=== PATIENT | male | born 1955 | race Hispanic/Latino ===

== ENCOUNTER 2020-01-02 10:42 | Emergency (ER) | payer OTHER ==
[2020-01-02 11:08] LABS: Absolute Lymphocytes (CBC) 1.4 K/uL (0.7-4.9); Basophils % 1.2 % (0-1.3); Hematocrit 41.7 % (39.6-49.0); Lymphocytes % 17.2 % (15.3-44.8); MPV 8.2 fL (7.6-11.3); RBC Red Blood Cell Count 4.95 M/uL (4.33-5.43)
--- NOTE | 2020-01-02 11:13 | RAD REPORT ---
EXAM DESCRIPTION: CT - Head Brain Wo Cont - 01/02/2020 11:02 am CLINICAL HISTORY: Dizziness;Headache Headache, drowsiness COMPARISON: No comparisons TECHNIQUE: All CT scans are performed using dose optimization technique as appropriate and may inclu de automated exposure control or mA/KV adjustment according to patient size. FINDINGS: No intracranial hemorrhage, hydrocephalus or extra-axial fluid collection.Mild brain atrop hy is present.No areas of brain edema or evidence of midline shift. Left mastoid air cell appears opacified. The paranasal sinuses and mastoids are otherwise clear. The calvarium is intact. IMPRESSION: No acute intracranial abnormality. Opacified left mastoid air cell.
--- NOTE | 2020-01-02 11:17 | RAD REPORT ---
EXAM DESCRIPTION: RAD - Chest Single View - 01/02/2020 11:01 am CLINICAL HISTORY: dizziness Chest pain. COMPARISON: Chest Single View dated 08/13/2017 FINDINGS: Portable technique limits examination quality. The lungs are grossly clear. The heart is normal in size. No displaced fractures.Multi lead pacer dev ice is present. IMPRESSION: No acute intrathoracic process suspected.
[2020-01-02 11:20] LABS: Protime INR 0.92
[2020-01-02 12:28] LABS: ALT/SGPT 16 U/L (12-78); AST/SGOT 10 U/L (15-37); Albumin 3.1 g/dL (3.4-5.0); Alkaline Phosphatase 88 U/L (45-117); BUN Blood Urea Nitrogen 40 mg/dL (7-18); Bicarbonate 25 mmol/L (21-32); Bilirubin Direct < 0.1 mg/dL (0-0.2); Bilirubin Total 0.2 mg/dL (0.2-1.0); Glucose Level 127 mg/dL (74-106); Magnesium 2.1 mg/dL (1.8-2.4); NT PRO-BNP 1148 pg/mL (<125); Potassium 4.2 mmol/L (3.5-5.1); Protein, Total 7.5 g/dL (6.4-8.2); Sodium Level 141 mmol/L (136-145); Troponin (Emerg Dept Use Only) < 0.02 ng/mL (0.0-0.045)
--- OUTSIDE RECORDS SUMMARY | 2020-01-02 12:32 | XMS REPORT | Summary of Care ---
:1955 Author Organization [facility] - [facility] Address [address] [place] [id number] Care Team Providers Name Role Phone Lupillo Herrera MD Primary Care Provider Matilda Ball RNoperating systems programmer Matilda Garcia Community Health Worker Reason for Visit Reason Comments Follow-up left a message Encounter Details Date Type Department Care Team Description 10/18/2019 Patient Outreach [facility] Kate Garcia Follow-up (left a [address] message ) [place], [place] [address] Allergies No Known Allergiesdocumented as of this encounter (statuses as of 10/18/2019) Medications Medication Sig Dispensed Refills Start Date End Date Status aspirin 81 mg Take 1 tablet by 60 tablet 5 02/28/2018 Active chewable tablet mouth daily. 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 hopi coronary artery of hopi heart without angina pectoris FUROSEMIDE 40 mg TAKE 1 TABLET BY 60 tablet 2 06/27/2019 Active tabletIndications: MOUTH IN THE Coronary artery MORNING AND IN disease involving THE EVENING hopi coronary artery of hopi heart without angina pectoris insulin detemir U-100 inject 55 Units 20 mL 5 07/21/2019 Active (LEVEMIR U-100 under the skin INSULIN) 100 unit/mL at bedtime. injectionIndications: Uncontrolled type 2 diabetes mellitus with stage 4 chronic kidney disease, with long-term current use of insulin insulin regular human inject 15 Units 20 mL 5 07/21/2019 Active 100 unit/mL under the skin 3 injectionIndications: (three) times Uncontrolled type 2 daily before diabetes mellitus meals. with stage 4 chronic kidney disease, with long-term current use of insulin hydrALAZINE 100 mg Take 1 tablet by 270 tablet 2 08/10/2019 Active tabletIndications: mouth 3 (three) Coronary artery times daily for disease involving 90 days. hopi coronary artery of hopi heart without angina pectoris isosorbide Take 60 mg by 0 Activ e mononitrate 60 mg 24 mouth daily. hr tablet ATORVASTATIN 40 mg TAKE 2 TABLETS 60 tablet 0 09/14/2019 Active tabletIndications: BY MOUTH AT GUTIERREZ (dyspnea on BEDTIME exertion) clopidogreL (PLAVIX) Take 1 tablet by 30 tablet 2 09/22/2019 0 10/22/2019 Active 75 mg mouth daily for tabletIndications: 30 days. Coronary artery disease involving hopi coronary artery of hopi heart without angina pectoris documented as of this encounter (statuses as of 10/18/2019) Active Problems Problem Noted Date Morbid obesity with body mass index of 40.0-49.9 07/05 Cardiac pacemaker in situ 07/05/2019 Screening for colorectal cancer 06/12/2019 Overview: Added automatically from request for monik nelson [id number] Vitamin D deficiency 03/01/2018 Pseudophakia of left eye 02/25/2018 Senile incipient cataract of right eye 02/25/2018 Stable proliferative diabetic retinopathy of both eyes associated with 02/25/2018 type 2 diabetes mellitus Retinal detachment, tractional, right eye 02/25/2018 Immunization counseling 01/25/2018 ESR raised 01/25/2018 Essential hypertension 01/11/2018 Chronic systolic congestive heart failure 01/11/2018 Hyperkalemia 01/11/2018 Anemia, unspecified type 01/11/2018 Chronic cholecystitis with calculus 01/10/2018 Positive NATE (antinuclear antibody) 1:80, Low C4 12/31 Elevated alkaline phosphatase level 11/29/2017 CHF (congestive heart failure) 11/22/2017 CAD (coronary artery disease) 11/22/2017 Callus of foot 11/22/2017 Diabetic peripheral neuropathy 11/22/2017 Obesity (BMI 30-39.9) 11/07/2017 SOB (shortness of breath) 11/07/2017 Tachycardia 11/07/2017 Insulin dependent type 2 diabetes mellitus, uncontroll ed 10/17/2015 Stage 4 chronic kidney disease Cataract documented as of this encounter (statuses as of 10/18/2019) Resolved Problems Problem Noted Date Resolved Date Hypoxia 11/07/2017 11/22/2017 SBO (small bowel obstruction) 11/08/2015 11/22/2017 documented as of this encounter (statuses as of 10/18/2019) Immunizations Name Administration Dates Next Due Pneumococcal Polysaccharide, PPSV23 (PNEUMOVAX) 10/18/2015 documented as of this encounter Social History Tobacco Use Types Packs/Day Years Used Date Never Smoker Smokeless Tobacco: Never Used Alcohol Use Drinks/Week oz/Week Comments No 0 Standard drinks or equivalent 0.0 Education Answer Date Recorded What is the highest level of school you have completed or 12 th grade 07/05/2019 the highest degree you have received? Financial Resource Strain Answer Date Recorded How hard is it for you to pay for the very basics like Not h juanita at all 07/05/2019 food, housing, medical care, and heating? Food Insecurity Answer Date Recorded Within the past 12 months, you worried that your food would Never true 07/05/2019 run out before you got money to buy more. Within the past 12 months, the food you bought just didn't N ever true 07/05/2019 last and you didn't have money to get more. Transportation Needs Answer Date Recorded In the past 12 months, has lack of transportation kept you f rom No 07/05/2019 medical appointments or from getting medications? In the past 12 months, has lack of transportation kept you f rom No 07/05/2019 meetings, work, or getting things needed for daily living? Sex Assigned at Date Recorded Not on file Job Start Date Occupation Industry Not on file Not on file Not on file Travel History Travel Start Travel End No recent travel history available. documented as of this encounter Last Filed Vital Signs Not on filedocumented in this encounter Progress Notes Kate Garcia - 10/18/2019 8:57 AM NIA Garcia called Mr. Rosado to follow up with him but no answer, did leave a message to call me back. documented in this encounter Plan of Treatment Date Type Specialty Care Team Description 11/03/2019 Office Visit Otolaryngology Tolu Cruz MD [address] [place] [address] [phone] 11/16/2019 Laboratory Only Cardiology 1, [facility] Cardio Fac Room Pc, [facility] Echo Room 1 - 2019 Office Visit Endocrinology Diabetes & Lonny Mclean, Metabolism [address] [facility] [address] [place], [place] [address] 2019 Nurse Visit Cardiology Visit, [facility] Nurse 03/08/2020 Office Visit Ophthalmology Hetaher Burroughs MD [address] [place], [place] [address] 04/18/2020 Office Visit Cardiology Juana Lyons MD [address] [place] [address] Health Maintenance Due Date Last Done Comments HgA1C 11/08/2019 05/09/2019, 02/11/2018, 11/06/2017, Additional history exists DTaP,Tdap,and Td Vaccines 05/08/2020 Postpo marbella from (1 - Tdap) 1965 (Refu sed) INFLUENZA VACCINE (#1) 2020 Postponed from 04/02/2019 (Refu sed) Zoster Recombinant Vaccine 05/08/2020 Postp oned from (SHINGRIX) (1 of 2) 2004 ( Insurance / Financial) LDL-C 05/09/2020 05/09/2019, 11/07/2017 URINE MICROALBUMIN 05/09/2020 05/09/2019 EYE EXAM 06/09/2020 06/09/2019, 02/25/2018 CREATININE (SERUM) 07/06/2020 07/06/2019, 07/05/2019, 05/09/2019, Additional history exists FOOT EXAM 07/21/2020 07/21/2019, 07/21/2019, 05/08/2019, Additional history exists COLONOSCOPY 07/18/2022 07/18/2019 PNEUMOCOCCAL 0-64 YEARS Completed 10/18/2015 COMBINED SERIES HEPATITIS C (HCV) SCREEN Completed 12/22/2017 documented as of this encounter Goals Goal Patient Goal Associated Recent Patient-Stated? Author Type Problems Progress Record your Blood Pressure No Jass Ball blood pressure E, RN once a day Eat more fruits Diet No Jass Ball and vegetables E, RN Increase Exercise No Jeny Ball physical E, RN activity Record your Result No Jeny Ball blood sugar as Component E, RN directed documented as of this encounter Implants Implanted Type Area Veneer Sander Device Shelf Model / Identifier Expiration Serial / Date Lot Defibrillator DEFIBRILLATOR documented as of this encounter Results Not on filedocumented in this encounter Insurance Payer Benefit Plan / Subscriber ID Effective Dates Phone Addre ss Type Group [facility] [id number] 2019-20 [facility] documented as of this encounter
--- OUTSIDE RECORDS SUMMARY | 2020-01-02 12:32 | XMS REPORT | Summary of Care ---
:1955 Author Organization [facility] Address [address] [place] [address] Care Team Providers Name Role Phone Lupillo Herrera MD Primary Care Provider Matilda Ball RNkitman Matilda Garcia Community [facility] Worker Reason for Visit Reason Comments Follow-up Coronary artery disease invo lving miccosukee coronary artery of [place] heart without angina pectoris (Routine) Status Reason Specialty Diagnoses / Referred By Referred To Procedures Contact Contact Authorized Cardiology Procedures Lupillo Herrera CONSULT/REFERRAL MD [facility] [address] [place] [address] [place] [address] Encounter Details Date Type Department Care Team Description 10/17/2019 Office Visit [facility] Juana Lyons Coronary gigi ry disease involving [place]ukee coronary artery of [place]e heart without angina pectoris (Primary Dx); Cardiology- Xena Messina MD Essential hypertension; [facility] [address] Stage 4 chronic kidney disease; [address], [address] 106 Chronic combined systolic and diastolic CHF, NYHA class 3; [place], [place] LBBB (left bund le branch block); [id number] Ischemic cardiomyopathy; [phone] S/P biventricular cardiac pacemaker proc edure Allergies No Known Allergiesdocumented as of this encounter (statuses as of 10/17/2019) Medications Medication Sig Dispensed Refills Start Date End Date Status aspirin 81 mg Take 1 tablet by 60 tablet 5 02/28/2018 Active chewable tablet mouth daily. 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 miccosukee coronary artery of [place]e heart without angina pectoris FUROSEMIDE 40 mg TAKE 1 TABLET BY 60 tablet 2 06/27/2019 Active tabletIndications: MOUTH IN THE Coronary artery MORNING AND IN disease involving THE EVENING [place]ukee coronary artery of mic[place]e heart without angina pectoris insulin detemir U-100 [...] times daily for disease involving 90 days. miccosukee coronary artery of miccosukee heart without angina pectoris isosorbide Take 60 [...] tabletIndications: 30 days. Coronary artery disease involving miccosukee coronary artery of miccosukee heart without angina pectoris documented as of this encounter (statuses as of 10/17/2019) Active Problems Problem Noted Date Morbid obesity with body mass index of 40.0-49.9 07/05 Cardiac pacemaker in situ 07/05/2019 Screening for colorectal cancer 06/12/2019 Overview: Added automatically from request for monik damon [id number] Vitamin D deficiency 03/01/2018 Pseudophakia of left [...] as of this encounter (statuses as of 10/17/2019) Resolved Problems Problem Noted Date Resolved Date Hypoxia 11/07/2017 11/22/2017 SBO (small bowel obstruction) 11/08/2015 11/22/2017 documented as of this encounter (statuses as of 10/17/2019) Immunizations Name Administration Dates Next Due Pneumococcal [...] of this encounter Last Filed Vital Signs Vital Sign Reading Time Taken Comments Blood Pressure 104/55 10/17/2019 1:00 PM CDT Pulse 67 10/17/2019 1:00 PM CDT Temperature - - Respiratory Rate 19 10/17/2019 1:00 PM CDT Oxygen Saturation 92% 10/17/2019 1:00 PM CDT Inhaled Oxygen Concentration - - Weight 114.7 kg (252 lb 14.4 oz) 10/17/2019 1:00 PM CDT Height 167.6 cm (5' 6") 10/17/2019 1:00 PM CDT Body Mass Index 40.82 10/17/2019 1:00 PM CDT documented in this encounter Progress Notes Juana Lyons MD - 10/17/2019 1:00 PM CDT [facility] Cardiology Consult Note Patient: Bernard Rosado Date of : 1955 Primary Care Physician: Lupillo Herrera CHIEF COMPLAINT: Chief Complaint Patient presents with Follow-up Coronary artery disease involving miccosukee coronary artery of miccosukee heart without angina pectoris History of Present Illness: Mr. Rosado is a 63-year-old male patient who presented to the office for follow- up for underlying chronic systolic heart failure/CAD. History from patient himself. Since the last office visit, feeling well on the whole. No new cardiac complaints noted. Feels having more energy. GUTIERREZ NYHA Class II stable. No exertional chest pain noted. He is off ACEI/ARB since the CKD status byhis shift lab technician. No chest pain at rest. No PND or orthopnea. No pedal edema. No exertional palpitations or palpitations at rest. No syncopal attacks. Hospital history:- Patient was noted to have acute myocardial infarctions subsequent to which patient was taken to [facility] for further evaluation and management. The coronary angiogram did show presence of significant 2 vessel disease with intervention in the left anterior descending artery and also RCA. He was also no tiffanie to have acute on chronic acute heart failure with LV systolic function of 20-25% subsequent to which patient was optimized with medications along with intervention and then discharged home. Previous Cardiac Studies: IMAGING - I personally reviewed, pertinent results as below: [facility] (11/11/2017): Significant improvement in the anterior wall thallium uptake corresponding to the LAD territory and demonstrating viability in that region. Cardiac: Echo 12/2017 The echocardiogram that was recently done shows still reduced systolic function at 2025% with regional wall motion changes with no significant changes compared to the previous echocardiogram done. TTE (11/08/2017): Left ventricular systolic function is severely reduced. Ejection Fraction = 25- 30%. Diastolic function is pseudonormal. Anteroseptal, inferoseptal , apical akinesis, and severe anterior wall hypokinesis. Left ventricular filling presure is elevated. Echo 09/2018 Interpretation Summary A two-dimensional transthoracic echocardiogram with M-mode and Doppler was performed. The study was technically limited. Ejection Fraction = 25-30%. Diastolic function is restrictive. Left ventricular filling presure is elevated. There are regional wall motion abnormalities as specified. Estimated RA pressure is 0-5 mmHg. Right ventricular systolic pressure is elevated at 55-60 mmHg. [facility] (11/09/2017): LEFT CORONARY ARTERY: Left Main Artery: Large vessel, Luminal irregularities LAD: Diffusely diseased vessel, with foal 40% disease at D2 takeoff, And distal tandem 70% stenosis In A small diffusely vessel Diagonal 2: ostial focal 50%, mid 50-70% disease Circumflex: Mediums sized Vessel, mild diffuse disease RIGHT CORONARY ARTERY: DOMINANCE: Right Dominant Name: BERNARD ROSADO Procedure date: 11/09/2017 RCA: Medium sized vessel, proximal Luminal irregularities, distal 30% disease Rt. PDA: multifocal 50% disease ( small vessel) RPL: small diffuse disease PCI (11/15/2017): PCI of the mLAD with 3x32 Synergy AMY IVUS of the mLAD stent showed well apposed and expanded stent MLA 6.2 mm sq FFR of the RCA significant (baseline 0.91 and peak wityh 90 mcg IC adenosine 0.85, baseline 0.91 andpeak with 140 mcg/kg/min infusion 0.72) PCI of the pRCA and dRCA with 3x32 and 2.5x24 Synergy AMY IVUS of the RCA stents showed well apposed and expanded stents pRCA stent MLA 6.9 mm sq, dRCA stent MLA 4.7 mm sq Echo 01/2018 Interpretation Summary Compared to prior study, there is no significant change. A complete two- dimensional transthoracic echocardiogram was performed (2D, M-mode, Doppler and color flow Doppler). Mildly dilated LV size with normal thickness. Severely reduced LV systolic function. Normal RV size and function. RVSP elevated 35-40 mmHg Echo 09/2018 Interpretation Summary A two-dimensional transthoracic echocardiogram with M-mode and Doppler was performed. The study was technically limited. Ejection Fraction = 25-30%. Diastolic function is restrictive. Left ventricular filling presure is elevated. There are regional wall motion abnormalities as specified. Estimated RA pressure is 0-5 mmHg. Right ventricular systolic pressure is elevated at 55-60 mmHg. 07/05/2019 Impression: Successful CRTD insertion PAST MEDICAL HISTORY Past Medical History: Diagnosis Date CAD (coronary artery disease) Cataract CHF (congestive heart failure) Chronic cholecystitis with calculus 01/10/2018 CKD (chronic kidney disease) Diabetic foot ulcer associated with type 2 diabetes mellitus right fifth toe HTN (hypertension) IDDM (insulin dependent diabetes mellitus) diagnosed in his 20's, started on insulin from beginning Osteomyelitis of toe of right foot Positive NATE (antinuclear antibody) 01/09/2018 SBO (small bowel obstruction) 11/08/2015 Vitamin D deficiency 03/01/2018 Past Surgical History: Procedure Laterality Date COLONOSCOPY N/A 07/18/2019 Surgeon: Cecelia Ramon MD; [place] [facility] [place] WITH INTRAOCULAR LENS IMPLANT Left LEFT HEART CATH OD REPAIR RETINAL CRYOTHERAPY, RIGHT EYE Family History Problem Relation Age of Onset Diabetes Mother Diabetes Father Diabetes Sister Cancer Sister "female" cancer Diabetes Brother Diabetes Brother SOCIAL HISTORY Social History Socioeconomic History Marital status: Single Spouse name: Not on file Number of children: 0 Years of education: Not on file Highest education level: 12th grade Occupational History Occupation: RETIRED Social Needs Financial resource strain: Not hard at all Food insecurity: Worry: Never true Inability: Never true Transportation needs: Medical: No Non-medical: No Tobacco Use Smoking status: Never Smoker Smokeless tobacco: Never Used Substance and Sexual Activity Alcohol use: No Alcohol/week: 0.0 standard drinks Drug use: No Sexual activity: Yes Partners: Female Lifestyle Physical activity: Days per week: Not on file Minutes per session: Not on file Stress: Not on file Relationships Social connections: Talks on phone: Not on file Gets together: Not on file Attends restorationism service: Not on file Active member of club or organization: Not on file Attends meetings of clubs or organizations: Not on file Relationship status: Not on file Intimate partner violence: Fear of current or ex partner: Not on file Emotionally abused: Not on file Physically abused: Not on file Forced sexual activity: Not on file Other Topics Concern Not on file Social History Narrative As of 11/07/2017: 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 Denies smoking, drinking, or using illicit drugs. Single, no children Not working currently ALLERGIES No Known Allergies MEDICATIONS Patient's Medications START taking these medications No medications on file CONTINUE taking these medications which have NOT CHANGED ASPIRIN 81 MG CHEWABLE TABLET Take 1 tablet by mouth daily. ATORVASTATIN 40 MG TABLET TAKE 2 TABLETS BY MOUTH AT BEDTIME CARVEDILOL 25 MG TABLET Take 1 tablet by mouth 2 (two) times daily with meals. CLOPIDOGREL (PLAVIX) 75 MG TABLET Take 1 tablet by mouth daily for 30 days. FUROSEMIDE 40 MG TABLET TAKE 1 TABLET BY MOUTH IN THE MORNING AND IN THE EVENING HYDRALAZINE 100 MG TABLET Take 1 tablet by mouth 3 (three) times daily for 90 days. INSULIN DETEMIR U-100 (LEVEMIR U-100 INSULIN) 100 UNIT/ML INJECTION inject 55 Units under the skin at bedtime. INSULIN REGULAR HUMAN 100 UNIT/ML INJECTION inject 15 Units under the skin 3 (three) times dailybefore meals. ISOSORBIDE MONONITRATE 60 MG 24 HR TABLET Take 60 mg by mouth daily. START taking Modified Medications as Prescribed No medications on file STOP taking these medications No medications on file REVIEW OF SYSTEMS: Comprehensive 10-system review was conducted and were negative except for what's noted in the HPI. The following systems were reviewed: Constitutional, cardiovascular, respiratory, gastrointestinal, genitourinary, musculoskeletal, neurologic, psychiatric, endocrinological, and hematological. PHYSICAL EXAMINATION: Vitals: 10/17/19 1300 BP: 104/55 BP Location: Left arm Patient Position: Sitting BP CUFF SIZE: Adult Large Pulse: 67 Resp: 19 SpO2: 92% Weight: 252 lb 14.4 oz (114.7 kg) Height: 5' 6" (1.676 m) General: no apparent distress HEENT: normocephalic atraumatic Neck: supple, no lymphadenopathy, no bruits, no JVD Lungs: clear to auscultation bilaterally. No wheezes or rhonchi. No increased work of breathing. Cardio: Regular rate and rhythm, S1&S2 normal, no murmurs, rubs or gallops Abdomen: soft; non-tender; non-distended; normoactive bowel sounds. : not examined Rectal: not examined Extremities: no clubbing, cyanosis, or edema. Skin: no rashes, no visible lesions. Neuro: no gross focal deficits LABS - Reviewed pertinent labs as below: CBC BMP PT/INR WBC (10*3/L) Date Value 07/05/2019 9.52 NA (mmol/L) Date Value 07/06/2019 141 No results found for: PT PLT (10*3/L) Date Value 07/05/2019 203 K (mmol/L) Date Value 07/06/2019 4.4 INR (no units) Date Value 07/05/2019 1.0 HGB (g/dL) Date Value 07/05/2019 13.4 BUN (mg/dL) Date Value 07/06/2019 25 (H) HCT (%) Date Value 07/05/2019 41.8 CREATININE (mg/dL) Date Value 07/06/2019 2.08 (H) LIPID PROFILE GLUCOSE (mg/dL) Date Value 07/06/2019 206 (H) CHOL (mg/dL) Date Value 05/09/2019 99 (L) TSH LDL CHOL (mg/dL) Date Value 05/09/2019 40 TSH (mIU/L) Date Value 11/07/2017 2.32 CARDIAC ENZYMES HDL (mg/dL) Date Value 05/09/2019 37 (L) CK (U/L) Date Value 01/03/2018 95 TRIG (mg/dL) Date Value 05/09/2019 110 LFTs CK-MB (ng/mL) Date Value 10/17/2015 1.16 AST(SGOT) (U/L) Date Value 05/09/2019 22 TROPONIN I (ng/mL) Date Value 12/24/2018 0.020 ALT(SGPT) (U/L) Date Value 05/09/2019 22 No results found for: BNP LDL CHOL (mg/dL) Date Value 05/09/2019 40 Recent Labs 12/24/18 1409 TROPNI 0.020 NT-proBNP (pg/mL) Date Value 05/09/2019 454 (H) LDL CHOL (mg/dL) Date Value 05/09/2019 40 ASSESSMENT/PLAN 1. Coronary artery disease involving mic[place]e coronary artery of miccosukee heart without angina pectoris 2. Essential hypertension 3. Stage 4 chronic kidney disease 4. Chronic combined systolic and diastolic CHF, NYHA class 3 5. LBBB (left bundle branch block) 6. Ischemic cardiomyopathy 7. S/P biventricular cardiac pacemaker procedure Clinically stable from cardiac stand point. No new cardiac complaints reports. Ischemic cardiomyopathy/HFrEF: Volume status stable. Planned for Echo 11/2019 as planned. Continue Coreg 25 mg BiD, Hydralazine 100 mg TID, Imdur 60 mg daily. Based on Echo, may need to increase imdur.Continue same dose Lasix 40 BiD. He is off ACEI/ARB since the CKD status by his shift lab technician. S/p CRTD 07/2019. Echo 11/2019 CAD s/p PCI 10/2017: No recurrent chest pain. On ASA + Plavix. Will stop after next OV Dyslipidemia: On lipitor 80 mg daily. ( taking lipitor 40 mg 2 tabs due of cost reasons). LDL at goal 40. 05/2019 Type 2 DM: following PCP. Follow up in 6 months. Recommended to follow up with device clinic. Recommended goal LDL < 70, HbA1c < 6.5, BP < 120/80 Recommended, explained and stressed the importance of healthy eating habits and exercises and lifestyle modifications Patient's diease process and its evaluation and treatment were discussed. We discussed each of for cardio vascular-related problems and discussed long-term goals and expectations for the each problem.I reviewed each of the cardiac medications in detail. Reviewed the medication with patient in detail recommended to continue taking the current medications without further changes other than changes mentioned above. Recommended, explained and stressed the importance of healthy eating habits and exercises and lifestyle modifications Follow up as planned is predicated on symptoms stability and/or acceptable test results. Patient is urged to call in sooner should problems arise or if there is no improvement in cardiac symptoms. ER warning signs and symptoms explained and patient verbalized understanding. My diagnostic impression and treatment plans were discussed at length with the patient. All side effects as well as drug-drug interactions and risks discussed at length. Ample opportunity was offered and encouraged to ask questions during this visit and patient appreciated the answers given by me and verbzalised statisfcation in the answers given. We reviewed the [place] [employer] recommendations for reduction of overall cardio vascular risk. The importance of monitoring the blood pressure carefully both at home on regular basis along with other physicians appointment was stressed in detail. In addition we discussed target LDL levels for optimal risk reduction. It was advised that to daily physical activity be performed with 30 minutes of sustained exercise for both cardio vascular fitness and improvement for generalized medical health and well-being. El Lyons MD [facility] [employer], Division of Cardiology [facility] documented in this encounter Plan of Treatment Date Type Specialty Care Team Description 11/03/2019 Office Visit Otolaryngology Tolu Cruz MD [address] [facility] [place], [place] [id number] 11/16/2019 Laboratory Only Cardiology 1, [facility], [facility] Echo Room 1 - 2019 Office Visit Endocrinology Diabetes & Lonny Mclean, Metabolism [address] [place] [address] [address] [place], [place] [address] [phone] 2019 Nurse Visit Cardiology Visit, Adc Nurse 03/08/2020 Office Visit Ophthalmology Heather Burroughs MD [address] [place] [id number] 04/18/2020 Office Visit Cardiology Juana Lyons MD [address] [facility] [address] [place] [phone] Health Maintenance Due Date Last Done Comments [...] of this encounter Implants Implanted Type Area Tank Pumper Device Shelf Model / Identifier Expiration Serial / Date Lot Defibrillator DEFIBRILLATOR documented as of this encounter Results Not on filedocumented in this encounter Visit Diagnoses Diagnosis Coronary artery disease involving mic[place]e coronary artery of miccosukee heart without angina pectoris - Primary Essential hypertension Unspecified essential hypertension Stage 4 chronic kidney disease Chronic combined systolic and diastolic CHF, NYHA class 3 LBBB (left bundle branch block) Other left bundle branch block Ischemic cardiomyopathy Other specified forms of chronic ischemi c heart disease S/P biventricular cardiac pacemaker proc edure Cardiac pacemaker in situ documented in this encounter Insurance Payer Benefit Plan / Subscriber ID Effective Dates Phone Addre ss Type Group [facility] [id number] 2019-20 [facility] [address] (Work) [id number] documented as of this encounter
--- OUTSIDE RECORDS SUMMARY | 2020-01-02 12:32 | XMS REPORT | Summary of Care ---
:1955 Author Organization [facility] [employer] [facility] Address [address] [place] [address] Care Team Providers Name Role Phone Lupillo Herrera MD Primary Care Provider Matilda Ball RNoracle applications developer Matilda Garcia Community Health Worker Reason for Visit Reason Comments Follow-up Coronary artery disease invo lving [place] coronary artery of [place] heart without angina pectoris (Routine) Status Reason Specialty Diagnoses / Referred By Referred To Procedures Contact Contact Authorized Cardiology Procedures Lupillo Herrera CONSULT/REFERRAL MD Susan [facility] [address] [place] [address] [place] [address] Encounter Details Date Type Department Care Team Description 10/17/2019 Office Visit [facility] Juana Lyons Coronary gigi ry disease involving [place] coronary artery of [place] heart without angina pectoris (Primary Dx); Cardiology- Xena Messina MD Essential hypertension; [facility] [address] HOSPTAL Stage 4 chronic [address] disease; [address], [address] 106 Chronic combined systolic and diastolic CHF, NYHA class 3; [place], [place] LBBB (left bund [place] branch block); [id number] Ischemic cardiomyopathy; [phone] S/P biventricular cardiac pacemaker proc edure Allergies [...] artery times daily with disease involving meals. [place] coronary artery of [place] heart without angina pectoris FUROSEMIDE 40 mg TAKE 1 TABLET BY 60 tablet 2 06/27/2019 Active tabletIndications: MOUTH IN THE Coronary artery MORNING AND IN disease involving THE EVENING [place] coronary artery of [place] heart without angina pectoris insulin detemir U-100 [...] times daily for disease involving 90 days. [place] coronary artery of [place] heart without angina pectoris isosorbide Take 60 [...] tabletIndications: 30 days. Coronary artery disease involving [place] coronary artery of [place] heart without angina pectoris documented as of this encounter (statuses as of 10/17/2019) Active Problems Problem Noted Date Morbid obesity with body mass index of 40.0-49.9 07/05 Cardiac pacemaker in situ 07/05/2019 Screening for colorectal cancer 06/12/2019 Overview: Added automatically from request for monik damon [id number] Vitamin D deficiency 03/01/2018 Pseudophakia of left [...] Lyons MD - 10/17/2019 1:00 PM CDT [facility] Cardiology Consult Note Patient: Bernard Rosado Date of : 1955 Primary Care Physician: Lupillo Herrera CHIEF COMPLAINT: Chief Complaint Patient presents with Follow-up Coronary artery disease involving [place] coronary artery of [place] heart without angina pectoris History of Present [...] off ACEI/ARB since the CKD status byhis square cutter. No chest pain at rest. No PND or orthopnea. No pedal edema. No exertional palpitations or palpitations at rest. No syncopal attacks. Hospital history:- Patient was noted to have acute myocardial infarctions subsequent to which patient was taken to [place] for further evaluation and management. The coronary [...] systolic pressure is elevated at 55-60 mmHg. 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 Denies smoking, [...] 40 ASSESSMENT/PLAN 1. Coronary artery disease involving [place] coronary artery of [place] heart without angina pectoris 2. Essential hypertension [...] ACEI/ARB since the CKD status by his square cutter. S/p CRTD 07/2019. Echo 11/2019 CAD s/p [...] in the answers given. We reviewed the [place] [employer] recommendations for reduction of overall [...] medical health and well-being. El Lyons MD Endoscopy Registered Nurse, Division of Cardiology [facility] documented in this encounter Plan of Treatment Date Type Specialty Care Team Description 11/03/2019 Office Visit Otolaryngology Tolu Cruz MD [address] [facility] [address] [facility] [place], [place] [address] 11/16/2019 Laboratory Only Cardiology 1, [facility] Cardio Fac Room Pc, [facility] Echo Room 1 - 2019 Office Visit Endocrinology Diabetes & Lonny Mclean, Metabolism [address] [place] [address] [address] [place], [place] [address] [phone] 2019 Nurse Visit Cardiology Visit, Adc Nurse 03/08/2020 Office Visit Ophthalmology Heather Burroughs MD [address] [place] [address] 04/18/2020 Office Visit Cardiology Juana Lyons MD [address] [facility] [address] [place] [phone] Health Maintenance Due Date Last Done Comments [...] of this encounter Implants Implanted Type Area Medical Housekeeper Device Shelf Model / Identifier Expiration Serial / Date Lot Defibrillator DEFIBRILLATOR documented as of this encounter Results Not on filedocumented in this encounter Visit Diagnoses Diagnosis Coronary artery disease involving [place] coronary artery of [place] heart without angina pectoris - Primary Essential [...] Effective Dates Phone Addre ss Type Group [facility] [id number] 2019-20 [facility] DST HOSP DIST 20 (Work) [id number] documented as of this encounter
--- OUTSIDE RECORDS SUMMARY | 2020-01-02 12:33 | XMS REPORT | Summary of Care ---
:1955 Author Organization [facility] Address [address] [place] [address] Care Team Providers Name Role Phone Lupillo Herrera MD Primary Care Provider Matilda Ball RNboom supervisor Matilda Garcia Community Health Worker Reason for Visit Reason Comments Ear Problem (Routine) Status Reason Specialty Diagnoses / Referred By Referred To Procedures Contact Contact Closed DONI-OTOLARYNGOLOGY / Diagnoses ear effusion/ possible ear tubes/ Nellie Roca McKinnon, Otolaryngology Procedures CONSULT/REFERRAL ENT TELEHEALTH ALTERNATIVE ALEXANDRO Motley MD [address] [facility] [address] [place] [address] Phone: Fax: Encounter Details Date Type Department Care Team Description 11/03/2019 Telemedicine Visit [facility] Cancer Antonia Cruz ed conductive and sensorineural hearing loss of both ears (Primary Dx); Center-Head and MD Tolu ETD (Eustachian tube dysfunction), bilat eral; Neck Surgery [address] Nasal turbinate hypertrophy; [address] [facility] ANNA (midd le ear effusion), bilateral [address] [place], [place] [address] [place], [place] [phone] [address] [phone] Allergies No Known Allergiesdocumented as of this encounter (statuses as of 11/03/2019) Medications Medication Sig Dispensed Refills Start Date End Date Status aspirin 81 mg Take 1 tablet by 60 tablet 5 02/28/2018 Active chewable tablet mouth daily. 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 [place] coronary artery of [place] heart without angina pectoris FUROSEMIDE 40 mg TAKE 1 TABLET BY 60 tablet 2 06/27/2019 Active tabletIndications: MOUTH IN THE Coronary artery MORNING AND IN disease involving THE EVENING [place] coronary artery of [place] heart without angina pectoris insulin detemir U-100 [...] times daily for disease involving 90 days. [place] coronary artery of [place] heart without angina pectoris ATORVASTATIN 40 mg TAKE 2 TABLETS 60 tablet 0 09/14/2019 Active tabletIndications: BY MOUTH AT GUTIERREZ (dyspnea on BEDTIME exertion) ISOSORBIDE Take 1 tablet by 90 tablet 0 11/02/2019 A ctive MONONITRATE 60 mg 24 mouth once daily hr tablet documented as of this encounter (statuses as of 11/03/2019) Active Problems Problem Noted Date Morbid obesity with body mass index of 40.0-49.9 07/05 Cardiac pacemaker in situ 07/05/2019 Screening for colorectal cancer 06/12/2019 Overview: Added automatically from request for monik damon [id number] Vitamin D deficiency 03/01/2018 Pseudophakia of left [...] as of this encounter (statuses as of 11/03/2019) Resolved Problems Problem Noted Date Resolved Date Hypoxia 11/07/2017 11/22/2017 SBO (small bowel obstruction) 11/08/2015 11/22/2017 documented as of this encounter (statuses as of 11/03/2019) Immunizations Name Administration Dates Next Due Pneumococcal [...] on filedocumented in this encounter Progress Notes Tolu Cruz MD - 11/03/2019 8:00 AM CDT Otolargyngology Telehealth Visit Name: Pierre Rosado MR No: [id number] Provider: Tolu Cruz M.D. Date: 11/03/2019 History: Chief Complaint: Hearing Loss History of Present Illness: Pierre Rosado is a 63 year old male seen in consultation at the request of ELLEN Roca fore evaluation of ETD, bilaterally. Pt relates being able to use the triple sprays recommended by ELLEN Roca and is still using the Flonase and Saline. Today, he states after he lays down for long periods his hearing is improved but his hearing loss gets worse as he moves throughout the day. He endorses that his ears pop occasionally when he yawns. Pt admits to a history of allergies. Past Medical Hx: Past Medical History: Diagnosis Date CAD (coronary [...] 11/08/2015 Vitamin D deficiency 03/01/2018 Past Surgical Hx: Past Surgical History: Procedure Laterality Date COLONOSCOPY N/A 07/18/2019 Surgeon: Cecelia Ramon MD; Location: [facility] [place] EXTRACAPSULAR CATARACT EXTRACTION WITH INTRAOCULAR LENS IMPLANT Left LEFT HEART CATH OD REPAIR RETINAL CRYOTHERAPY, RIGHT EYE Family History: Family History Problem Relation Age of Onset Diabetes Mother Diabetes Father Diabetes Sister Cancer Sister "female" cancer Diabetes Brother Diabetes Brother Social History: Social History Occupational History Occupation: RETIRED Tobacco Use Smoking status: Never Smoker Smokeless tobacco: Never Used Substance and Sexual Activity Alcohol use: No Alcohol/week: 0.0 standard drinks Drug use: No Sexual activity: Yes Partners: Female Medications: Current Outpatient Medications Medication Sig ISOSORBIDE MONONITRATE 60 mg 24 hr tablet Take 1 tablet by mouth once daily ATORVASTATIN 40 mg tablet TAKE 2 TABLETS BY MOUTH AT BEDTIME hydrALAZINE 100 mg tablet Take 1 tablet by mouth 3 (three) times daily for 90 days. insulin detemir U-100 (LEVEMIR U-100 INSULIN) 100 unit/mL injection inject 55 Units under the skin at bedtime. insulin regular human 100 unit/mL injection inject 15 Units under the skin 3 (three) times dailybefore meals. FUROSEMIDE 40 mg tablet TAKE 1 TABLET BY MOUTH IN THE MORNING AND IN THE EVENING carvedilol 25 mg tablet Take 1 tablet by mouth 2 (two) times daily with meals. aspirin 81 mg chewable tablet Take 1 tablet by mouth daily. Allergies to Meds: Patient has no known allergies. Review of systems: CONSTITUTIONAL: negative; EYES: negative; ENT: ETD bilaterally, hearing loss; CARDIOVASCULAR: negative; RESPIRATORY: negative; GASTROINTESTINAL: negative; GENITOURINARY: negative; MUSCULOSKELETAL: negative; SKIN: negative; NEUROLOGICAL: negative; PSYCHIATRIC: negative; ENDOCRINE: negative; HEMATOLOGIC/ LYMPHATIC: negative; ALLERGIC/ IMMUNOLOGIC: allergies. TELEHEALTH PHYSICAL EXAM: There were no vitals taken for this visit. Limited exam due to Telehealth environment. Gen: Patient was awake, alert, and in no distress. Resp: No difficulty breathing, no hoarseness, no stridor. Neuro: no difficulty with answering questions, cognition intact. Psych: Oriented to person, place, time. Appropriate affect for age. This encounter was provided via a telehealth format. Verbal consent was obtained was obtained from Pierre Rosado prior to the visit for the telehealth services provided above Provider: Tolu Cruz, Role: Physician Providers location: Onsite, ENT clinic Patient's location: Home This visit was performed utilizing Telephone with audio alone, and a total of 15 minutes was spent with the patient utilizing the format listed above. Medical Decision Making: DATA: Data Reviewed: Medical: PMH as detailed in EMR Radiology: 01/24/2019 CT HEAD WO CONTRAST HISTORY: Male 63 years Altered mental status (AMS), unclear cause Syncope COMPARISON: None TECHNIQUE: Routine CT head without contrast FINDINGS: The ventricles and cerebral sulci are normal in caliber and configuration. No hydrocephalus, midline shift or pathological extra-axial fluid collection is present. The basal cisterns are unremarkable. No acute intracranial hemorrhage or mass effect is present. The garcia-white matter differentiation is preserved. No parenchymal attenuation abnormality is present. The calvarium and skull base are unremarkable. The mastoid air cells and visualized paranasal air sinuses are clear. IMPRESSION Normal CT head Laboratory: None Tests and procedures ordered: Medical: Audiogram Radiology: None Laboratory: None DIAGNOSES: ICD-10-CM ICD-9-CM 1. Mixed conductive and sensorineural hearing loss of both ears H90.6 389.22 2. ETD (Eustachian tube dysfunction), bilateral H69.83 381.81 3. Nasal turbinate hypertrophy J34.3 478.0 4. ANNA (middle ear effusion), bilateral H65.93 381.4 Assessment and Plan: Pierre Rosado is a 63 year old male present for telehealth evaluation for hearing loss and ETD. Pt reports use of flonase and saline recommended by ELLEN Roca. Pt has continued symptoms of hearing loss and occasionally ear popping. Recommended patient to continue flonase and saline and, to pop his ears QID. RTC in January 2020 with audiogram. - Pt is instructed on proper use of Flonase and Saline BID, specifically spraying right side with left hand and left side with right hand - Recommended to pop his ears QID - RTC for in clinic evaluation and audiogram in January 2020 Scribe's Attestation I, Latosha Fontaine , am scribing for, and in the presence of, Tolu Cruz MD who performed the services described here-in. Latosha Fontaine, November 03, 2019, 8:18 AM Physician's Attestation I, Tolu Cruz MD, personally performed the services described in this documentation, as telescribed by Latosha Fontaine in my presence and it is both accurate and complete. Tolu Cruz MD November 03, 2019, 9:31 AM documented in this encounter Plan of Treatment Date Type Specialty Care Team Description 2019 Telemedicine Visit Endocrinology Diabetes & Lonny Mclean, Metabolism [address] [facility] [address] [place], [place] [address] [phone] 2019 Nurse Visit Cardiology Visit, Adc Nurse 12/06/2019 Laboratory Only Cardiology Pc, Adc Echo Room 1 - 03/08/2020 Office Visit Ophthalmology Heather Burroughs MD [address] [place], [place] [address] 04/18/2020 Office Visit Cardiology Juana Lyons MD [address] [facility] [address] [place] [address] Health Maintenance Due Date Last [...] of this encounter Implants Implanted Type Area Marketing Strategy Lead Device Shelf Model / Identifier Expiration Serial / Date Lot Defibrillator DEFIBRILLATOR documented as of this encounter Results Not on filedocumented in this encounter Visit Diagnoses Diagnosis Mixed conductive and sensorineural heari ng loss of both ears - Primary Mixed hearing loss, bilateral ETD (Eustachian tube dysfunction), bilat eral Nasal turbinate hypertrophy Hypertrophy of nasal turbinates ANNA (middle ear effusion), bilateral documented in this encounter Insurance Payer Benefit Plan / Subscriber ID Effective Dates Phone Addre ss Type Group [facility] [id number] 2019-20 [facility] DST HOSP DIST 20 (Work) [id number] documented as of this encounter
--- OUTSIDE RECORDS SUMMARY | 2020-01-02 12:33 | XMS REPORT | Summary of Care ---
:1955 Author Organization [facility] Address [address] [place] [address] Care Team Providers Name Role Phone Lupillo Herrera MD Primary Care Provider Matilda Ball RNautomotive service management teacher Matilda Garcia Community Health Worker Reason for Visit Reason Comments Ear Problem (Routine) Status Reason Specialty Diagnoses / Referred By Referred To Procedures Contact Contact Closed DONI-OTOLARYNGOLOGY / Diagnoses ear effusion/ possible ear tubes/ Nellie Roca McKinnon, Otolaryngology Procedures CONSULT/REFERRAL ENT TELEHEALTH ALTERNATIVE ALEXANDRO Motley MD [address] [facility] [address] [place] [address] Phone: Fax: Encounter Details Date Type Department Care Team Description 11/03/2019 Telemedicine Visit [facility] Cancer Antonia Cruz ed conductive and sensorineural hearing loss of both ears (Primary Dx); Center-Head and MD Tolu ETD (Eustachian tube dysfunction), bilat eral; Neck Surgery [address] Nasal turbinate hypertrophy; [address] [facility] ANNA (midd le ear effusion), bilateral [address] [place], [place] [address] [place], [place] [phone] [address] [phone] Allergies No Known Allergiesdocumented as of this encounter (statuses as of 11/03/2019) Medications Medication Sig Dispensed Refills Start Date End Date Status aspirin 81 mg Take 1 tablet by 60 tablet 5 02/28/2018 Active chewable tablet mouth daily. 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 [place] coronary artery of [place] heart without angina pectoris FUROSEMIDE 40 mg TAKE 1 TABLET BY 60 tablet 2 06/27/2019 Active tabletIndications: MOUTH IN THE Coronary artery MORNING AND IN disease involving THE EVENING [place] coronary artery of [place] heart without angina pectoris insulin detemir U-100 [...] times daily for disease involving 90 days. [place] coronary artery of [place] heart without angina pectoris ATORVASTATIN 40 mg [...] Added automatically from request for monik damon [id number] Vitamin D deficiency 03/01/2018 Pseudophakia of left [...] for the very basics like Not h junaita at all 07/05/2019 food, housing, medical care, [...] 8:00 AM CDT Otolargyngology Telehealth Visit Name: iPerre Rosado MR No: [id number] Provider: Tolu Cruz M.D. Date: 11/03/2019 History: [...] N/A 07/18/2019 Surgeon: Cecelia Ramon MD; [place] [facility] [place]TRACAPSULAR CATARACT EXTRACTION WITH INTRAOCULAR LENS IMPLANT [...] the services described in this documentation, as scribedby Latosha Fontaine in my presence and it is both accurate and complete. Tolu Cruz MD November 03, 2019, 9:31 AM documented in this encounter Plan of Treatment Date Type Specialty Care Team Description 2019 Telemedicine Visit Endocrinology Diabetes & Lonny Mclean, Metabolism 146 [facility] [address] [place], [place] [address] [phone] 2019 Nurse Visit Cardiology Visit, Adc Nurse 12/06/2019 Laboratory Only Cardiology Pc, Adc Echo Room 1 - 03/08/2020 Office Visit Ophthalmology Heather Burroughs MD [address] [place], [place] [address] 04/18/2020 Office Visit Cardiology Juana Lyons MD 146 [facility] 106 [place] [address] Health Maintenance Due Date Last [...] of this encounter Implants Implanted Type Area Molecular Biology Scientist Device Shelf Model / Identifier Expiration Serial [...] Effective Dates Phone Addre ss Type Group [facility] [id number] 2019-20 [facility] DST HOSP DIST 20 (Work) [id number] documented as of this encounter
--- OUTSIDE RECORDS SUMMARY | 2020-01-02 12:33 | XMS REPORT | Summary of Care ---
:1955 Author Organization [facility] [place] Address [address] [place] [address] Care Team Providers Name Role Phone Lupillo Herrera MD Primary Care Provider Matilda Ball RNwholesale manager Matilda Garcia Community Health Worker Reason for Visit Reason Comments Refill Request Encounter Details Date Type Department Care Team Description 11/02/2019 Refill [facility] Cardiology- Juana Lyons MD Refill Request [place] [address] [facility] [address] [facility], [address] [facility] [address] [place] [address] [place] [address] [phone] Allergies No Known Allergiesdocumented as of this encounter (statuses as of 11/02/2019) Medications Medication Sig Dispensed Refills Start Date End Date Status aspirin 81 mg Take 1 tablet 60 tablet 5 02/28/2018 A ctive chewable tablet by mouth daily. carvedilol 25 mg Take 1 tablet 180 tablet 3 01/24/2019 Active tabletIndications: by mouth 2 Coronary artery (two) times disease involving daily with [place] coronary meals. artery of [place] heart without angina pectoris FUROSEMIDE 40 mg TAKE 1 TABLET 60 tablet 2 06/27/2019 Active tabletIndications: BY MOUTH IN Coronary artery THE MORNING disease involving AND IN THE [place] coronary EVENING artery of [place] heart without angina pectoris insulin detemir inject 55 20 mL 5 07/21/2019 Act sudheer U-100 (LEVEMIR Units under U-100 INSULIN) 100 the skin at unit/mL bedtime. injectionIndication s: Uncontrolled type 2 diabetes mellitus with stage 4 chronic kidney disease, with long-term current use of insulin insulin regular inject 15 20 mL 5 07/21/2019 Act sudheer human 100 unit/mL Units under injectionIndication the skin 3 s: Uncontrolled (three) times type 2 diabetes daily before mellitus with stage meals. 4 chronic kidney disease, with long-term current use of insulin hydrALAZINE 100 mg Take 1 tablet 270 tablet 2 08/10/201911/07 Active tabletIndications: by mouth 3 Coronary artery (three) times disease involving daily for 90 [place] coronary days. artery of [place] heart without angina pectoris ATORVASTATIN 40 mg TAKE 2 60 tablet 0 09/14/2019 Active tabletIndications: TABLETS BY GUTIERREZ (dyspnea on MOUTH AT exertion) BEDTIME ISOSORBIDE Take 1 tablet 90 tablet 0 11/02/2019 Acti ve MONONITRATE 60 mg by mouth once 24 hr tablet daily isosorbide Take 60 mg by 0 11/02/2019 Disc ontinued mononitrate 60 mg mouth daily. 24 hr tablet documented as of this encounter (statuses as of 11/02/2019) Active Problems Problem Noted Date Morbid obesity with body mass index of 40.0-49.9 07/05 Cardiac pacemaker in situ 07/05/2019 Screening for colorectal cancer 06/12/2019 Overview: Added automatically from request for monik damon [id number] Vitamin D deficiency 03/01/2018 Pseudophakia of left [...] as of this encounter (statuses as of 11/02/2019) Resolved Problems Problem Noted Date Resolved Date Hypoxia 11/07/2017 11/22/2017 SBO (small bowel obstruction) 11/08/2015 11/22/2017 documented as of this encounter (statuses as of 11/02/2019) Immunizations Name Administration Dates Next Due Pneumococcal [...] Signs Not on filedocumented in this encounter Plan of Treatment Date Type Specialty Care Team Description 11/03/2019 Telemedicine Visit Otolaryngology Tolu Cruz MD [address] [facility] [place] [address] [phone] 2019 Telemedicine Visit Endocrinology Diabetes & Lonny Mclean, Metabolism [address] [facility] [address] [place], [place] [address] [phone] 2019 Nurse Visit Cardiology Visit, Adc Nurse 12/06/2019 Laboratory Only Cardiology Pc, Adc Echo Room 1 - 03/08/2020 Office Visit Ophthalmology Heather Burroughs MD [address] [place] [address] 04/18/2020 Office Visit Cardiology Juana Lyons MD [address] [facility] [address] [place] [address] Health Maintenance Due Date Last [...] of this encounter Implants Implanted Type Area Lumber Hacker Device Shelf Model / Identifier Expiration Serial / Date Lot Defibrillator DEFIBRILLATOR documented as of this encounter Results Not on filedocumented in this encounter Insurance Payer Benefit Plan / Subscriber ID Effective Dates Phone Addre ss Type Group [facility] [id number] 2019-20 [facility] HOSP DIST 20 documented as of this encounter
--- OUTSIDE RECORDS SUMMARY | 2020-01-02 12:34 | XMS REPORT | Summary of Care ---
:1955 Author Organization [facility] Address [address] [place] [address] Care Team Providers Name Role Phone Lupillo Herrera MD Primary Care Provider Matilda Ball RNcoal pipeline operator Matilda Garcia Community Health Worker Reason for Visit Reason Comments Results Encounter Details Date Type Department Care Team Description 11/29/2019 Telephone [facility] Cardiology- Juana Lyons MD Results [place] [address] [facility], Suite [facility] [address] [place] [address] [place] [address] [phone] Allergies No Known Allergiesdocumented as of this encounter (statuses as of 11/29/2019) Medications Medication Sig Dispensed Refills Start Date End Date Status aspirin 81 mg chewable Take 1 tablet by 60 tablet 5 02/28/2018 Active tablet mouth daily. 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 [place] coronary artery of [place] heart without angina pectoris FUROSEMIDE 40 mg TAKE 1 TABLET BY 60 tablet 2 06/27/2019 Active tabletIndications: MOUTH IN THE Coronary artery MORNING AND IN disease involving THE EVENING [place] coronary artery of [place] heart without angina pectoris insulin detemir U-100 inject 55 Units 20 mL 5 07/21/2019 Active (LEVEMIR U-100 under the skin at INSULIN) 100 unit/mL bedtime. injectionIndications: Uncontrolled type 2 diabetes mellitus with stage 4 chronic kidney disease, with long-term current use of insulin insulin regular human inject 15 Units 20 mL 5 07/21/2019 Active 100 unit/mL under the skin 3 injectionIndications: (three) times Uncontrolled type 2 daily before diabetes mellitus with meals. stage 4 chronic kidney disease, with long-term current use of insulin ATORVASTATIN 40 mg TAKE 2 TABLETS BY 60 tablet 0 09/14/2019 Active tabletIndications: GUTIERREZ MOUTH AT BEDTIME (dyspnea on exertion) ISOSORBIDE MONONITRATE Take 1 tablet by 90 tablet 0 11/02/2019 Active 60 mg 24 hr tablet mouth once daily documented as of this encounter (statuses as of 11/29/2019) Active Problems Problem Noted Date Morbid obesity with body mass index of 40.0-49.9 07/05 Cardiac pacemaker in situ 07/05/2019 Screening for colorectal cancer 06/12/2019 Overview: Added automatically from request for monik damon [id number] Vitamin D deficiency 03/01/2018 Pseudophakia of left [...] as of this encounter (statuses as of 11/29/2019) Resolved Problems Problem Noted Date Resolved Date Hypoxia 11/07/2017 11/22/2017 SBO (small bowel obstruction) 11/08/2015 11/22/2017 documented as of this encounter (statuses as of 11/29/2019) Immunizations Name Administration Dates Next Due Pneumococcal [...] Travel End No recent travel history available. COVID-19 Exposure Response Date Recorded In the last month, have you been in contact with No / Unsure 11/27/2019 8:03 AM CDT someone who was confirmed or suspected to have Coronavirus / COVID-19? documented as of this encounter Last Filed Vital Signs Not on filedocumented in this encounter Plan of Treatment Date Type Specialty Care Team Description 12/22/2019 Nurse Visit Cardiology Visit, Adc Nurse 01/24/2020 Ancillary Visit Audiology 2, [employer] [employer] [facility] 01/24/2020 Office Visit Otolaryngology Tolu Cruz MD [address] [place] [address] [phone] 03/08/2020 Office Visit Ophthalmology Heather Burroughs MD [address] [place], [place] [address] 03/29/2020 Office Visit Endocrinology Diabetes & Lonny Mclean, Metabolism [address] [facility] 208 [place], [place] [address] [phone] 04/18/2020 Office Visit Cardiology Juana Lyons MD [address] [place] [address] Health Maintenance Due Date Last Done Comments HgA1C 11/08/2019 05/09/2019, 02/11/2018, 11/06/2017, Additional history exists Medicare Wellness Visit 11/25/2019 PNEUMOCOCCAL VACCINES 65+ 11/25/2019 10/18/2015 (1 of 2 - PCV13) DTaP,Tdap,and Td Vaccines 05/08/2020 Postpo marbella from (1 - Tdap) 1965 (Refu sed) INFLUENZA VACCINE (#1) 2020 Postponed from 04/02/2019 (Refu sed) Zoster Recombinant Vaccine 05/08/2020 Postp oned from (SHINGRIX) (1 of 2) 2004 ( Insurance / Financial) LDL-C 05/09/2020 05/09/2019, 11/07/2017 URINE MICROALBUMIN 05/09/2020 05/09/2019 EYE EXAM 06/09/2020 06/09/2019, 02/25/2018 CREATININE (SERUM) 07/06/2020 07/06/2019, 07/05/2019, 05/09/2019, Additional history exists FOOT EXAM 11/23/2020 2019, 2019, 07/21/2019, Additional history exists COLONOSCOPY 07/18/2022 07/18/2019 HEPATITIS C (HCV) SCREEN Completed 12/22/2017 documented as of this encounter Goals Goal Patient Goal Associated Recent Patient-Stated? Author Type Problems Progress Record your Blood Pressure No Quinn, Ma ry blood pressure E, RN once a day Eat more fruits Diet No Jass Ball and vegetables E, RN Increase Exercise No Jeny Ball physical E, RN activity Record your Result No Jeny Ball blood sugar as Component E, RN directed documented as of this encounter Implants Implanted Type Area Private Investigator Device Shelf Model / Identifier Expiration Serial / Date Lot Defibrillator DEFIBRILLATOR documented as of this encounter Results Not on filedocumented in this encounter Insurance Payer Benefit Plan / Subscriber ID Effective Dates Phone Addre ss Type Group [facility] [id number] 2019-20 [facility] HOSP DIST 20 documented as of this encounter
--- OUTSIDE RECORDS SUMMARY | 2020-01-02 12:34 | XMS REPORT | Summary of Care ---
:1955 Author Organization [facility] Address [address] [place] [address] Care Team Providers Name Role Phone Lupillo Herrera MD Primary Care Provider Matilda Ball RNbearing grinder Matilda Garcia Community Health Worker Encounter Details Date Type Department Care Team Description 11/27/2019 Hospital Encounter [facility] Heart Jonathan Sunshine MD [address] [place] [address]. [place] [address] Center EP Device Zuri, Remote Device Check At Home - Clinic [facility] [place] [id number] [facility] [address], [address] [place] [address] Allergies No Known Allergiesdocumented as of this encounter (statuses as of 11/29/2019) Medications Medication Sig Dispensed Refills Start Date End Date Status aspirin 81 mg chewable Take 1 tablet by 60 tablet 5 02/28/2018 Active tablet mouth daily. 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 [place] coronary artery of [place] heart without angina pectoris FUROSEMIDE 40 mg TAKE 1 TABLET BY 60 tablet 2 06/27/2019 Active tabletIndications: MOUTH IN THE Coronary artery MORNING AND IN disease involving THE EVENING [place] coronary artery of [place] heart without angina pectoris insulin detemir U-100 [...] Added automatically from request for monik nelson [id number] Vitamin D deficiency 03/01/2018 Pseudophakia of left [...] Office Visit Otolaryngology Tolu Cruz MD [address] [facility] [place] [address] [phone] 03/08/2020 Office Visit Ophthalmology Heather Burroughs MD [address] [place], [place] [address] 03/29/2020 Office Visit Endocrinology Diabetes & Lonny Mclean, Metabolism [address] [facility] 208 [place], [place] [address] [phone] 04/18/2020 Office Visit Cardiology Juana Lyons MD [address] [facility] 106 [place] [address] Health Maintenance Due Date Last [...] Blood Pressure No Jass Ball blood pressure E RN once a day Eat more fruits Diet No Jass Ball and vegetables E RN Increase Exercise No Jeny Ball physical E RN activity Record your Result No Jeny Ball blood sugar as Component E RN directed documented as of this encounter Implants Implanted Type Area Overhead Crane Operator Device Shelf Model / Identifier Expiration Serial / Date Lot Defibrillator DEFIBRILLATOR documented as of this encounter Results Not on filedocumented in this encounter Insurance Payer Benefit Plan / Subscriber ID Effective Dates Phone Addre ss Type Group [facility] [id number] 2019-20 [facility] HOSP DIST 20 (Work) [id number] documented as of this encounter
--- OUTSIDE RECORDS SUMMARY | 2020-01-02 12:35 | XMS REPORT | Summary of Care ---
:1955 Author Organization [facility] - [address] [address] Care Team Providers Name Role Phone Lupillo Herrera MD Primary Care Provider Reason for Visit Reason Comments Follow-up Encounter Details Date Type Department Care Team Description 12/20/2019 Patient Outreach [facility] Kate Garcia Follow-up [address] [address] Allergies No Known Allergiesdocumented as of this encounter (statuses as of 12/20/2019) Medications Medication Sig Dispensed Refills Start Date End Date Status aspirin 81 mg chewable Take 1 tablet by 60 tablet 5 02/28/2018 Active tablet mouth daily. 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 [place] coronary artery of [place] heart without angina pectoris FUROSEMIDE 40 mg TAKE 1 TABLET BY 60 tablet 2 06/27/2019 Active tabletIndications: MOUTH IN THE Coronary artery MORNING AND IN disease involving THE EVENING [place] coronary artery of [place] heart without angina pectoris insulin detemir U-100 [...] as of this encounter (statuses as of 12/20/2019) Active Problems Problem Noted Date Morbid obesity with body mass index of 40.0-49.9 07/05 Cardiac pacemaker in situ 07/05/2019 Screening for colorectal cancer 06/12/2019 Overview: Added automatically from request for monik damon [id number] Vitamin D deficiency 03/01/2018 Pseudophakia of left [...] as of this encounter (statuses as of 12/20/2019) Resolved Problems Problem Noted Date Resolved Date Hypoxia 11/07/2017 11/22/2017 SBO (small bowel obstruction) 11/08/2015 11/22/2017 documented as of this encounter (statuses as of 12/20/2019) Immunizations Name Administration Dates Next Due Pneumococcal [...] this encounter Progress Notes Kate Garcia - 12/20/2019 10:02 AM ANATCCHMegan Garcia was emailed by SIDDHARTHA Ball that Mr. Rosado will be dis-enrolled so I will take him off my list. documented in this encounter Plan of Treatment Date Type Specialty Care Team Description 12/29/2019 Nurse Visit Cardiology Visit, Adc Nurse 01/24/2020 Ancillary Visit Audiology 2, [employer] [employer] [facility] 01/24/2020 Office Visit Otolaryngology Tolu Cruz MD [address] [facility] [address] [phone] 03/08/2020 Office Visit Ophthalmology Heather Burroughs MD [address] [place], [place] [address] 03/29/2020 Office Visit Endocrinology Diabetes & Lonny Mclean, Metabolism [address] [facility] 208 [place], [place] [address] [phone] 04/18/2020 Office Visit Cardiology Juana Lyons MD [address] [facility] 106 [place] [address] Health Maintenance Due Date Last Done Comments HgA1C 11/08/2019 05/09/2019, 02/11/2018, 11/06/2017, Additional history exists Medicare Wellness Visit 11/25/2019 PNEUMOCOCCAL VACCINES 65+ 11/25/2019 10/18/2015 (1 of 2 - PCV13) DTaP,Tdap,and Td Vaccines 05/08/2020 Postpo [place] from (1 - Tdap) 1965 (Refu sed) INFLUENZA VACCINE (Season 05/08/2020 Postpo marbella from Ended) 04/02/2020 (Refu sed) Zoster Recombinant Vaccine 05/08/2020 Postp [...] of this encounter Implants Implanted Type Area Wet Mix Operator Device Shelf Model / Identifier Expiration Serial / Date Lot Defibrillator DEFIBRILLATOR documented as of this encounter Results Not on filedocumented in this encounter Insurance Payer Benefit Plan / Subscriber ID Effective Dates Phone Addre ss Type Group [facility] [id number] 2019-20 [facility] HOSP DIST 20 documented as of this encounter
--- OUTSIDE RECORDS SUMMARY | 2020-01-02 12:35 | XMS REPORT | Summary of Care ---
:1955 Author Organization [facility] - [address] [address] Care Team Providers Name Role Phone Lupillo Herrera MD Primary Care Provider Reason for Visit Reason Comments Referral/consult disenroll from [facility] Encounter Details Date Type Department Care Team Description 12/20/2019 Patient Outreach [facility] Jeny Ball RN Referral/consult [address] (disenroll from [facility]) [place], [place] [address] Allergies No Known Allergiesdocumented [...] artery times daily with disease involving meals. [place] coronary artery of [place] heart without angina pectoris FUROSEMIDE 40 mg TAKE 1 TABLET BY 60 tablet 2 06/27/2019 Active tabletIndications: MOUTH IN THE Coronary artery MORNING AND IN disease involving THE EVENING [place] coronary artery of [place] heart without angina pectoris insulin detemir U-100 [...] Added automatically from request for monik damon [id number] Vitamin D deficiency 03/01/2018 Pseudophakia of left [...] on filedocumented in this encounter Progress Notes Jeny Ball RN - 12/20/2019 9:52 AM CDTCHP: Due to poor f/u with [facility] team, patient will be dis-enrolled. COLT Kilgore, RN, [facility] Outpatient Power Tong OperatorFibreglass LaminatorBlowing Rock Hospital O: [phone] M: [phone] documented in this encounter Plan of Treatment Date Type Specialty Care Team Description 12/29/2019 Nurse Visit Cardiology Visit, Adc Nurse 01/24/2020 Ancillary Visit Audiology 2, [employer] [employer] [facility] 01/24/2020 Office Visit Otolaryngology Tolu Cruz MD [address] [facility] [place] [address] [phone] 03/08/2020 Office Visit Ophthalmology Heather Burroughs MD [address] [place], [place] [address] 03/29/2020 Office Visit Endocrinology Diabetes & Lonny Mclean, Metabolism [address] [facility] [address] [place], [place] [address] 04/18/2020 Office Visit Cardiology Juana Lyons MD [address] [place] [address] Health Maintenance Due Date Last [...] of this encounter Implants Implanted Type Area Stripping Machine Operator Device Shelf Model / Identifier Expiration Serial / Date Lot Defibrillator DEFIBRILLATOR documented as of this encounter Results Not on filedocumented in this encounter Insurance Payer Benefit Plan / Subscriber ID Effective Dates Phone Addre ss Type Group [facility] [id number] 2019-20 [facility] HOSP DIST 20 documented as of this encounter
--- OUTSIDE RECORDS SUMMARY | 2020-01-02 12:35 | XMS REPORT | Summary of Care ---
:1955 Author Organization [facility] Address [address] [place] [address] Care Team Providers Name Role Phone Lupillo Herrera MD Primary Care Provider Matilda Ball RNsoftware development advisor Matilda Garcia Community Health Worker Reason for Visit Reason Comments Follow-up Encounter Details Date Type Department Care Team Description 12/05/2019 Patient Outreach [facility] Jass Ball, RN Follow-up [address] [address] Allergies No Known Allergiesdocumented as of this encounter (statuses as of 12/08/2019) Medications Medication Sig Dispensed Refills Start Date End Date Status aspirin 81 mg chewable Take 1 tablet by 60 tablet 5 02/28/2018 Active tablet mouth daily. 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 [place] coronary artery of [place] heart without angina pectoris FUROSEMIDE 40 mg TAKE 1 TABLET BY 60 tablet 2 06/27/2019 Active tabletIndications: MOUTH IN THE Coronary artery MORNING AND IN disease involving THE EVENING [place] coronary artery of [place] heart without angina pectoris insulin detemir U-100 [...] as of this encounter (statuses as of 12/08/2019) Active Problems Problem Noted Date Morbid obesity with body mass index of 40.0-49.9 07/05 Cardiac pacemaker in situ 07/05/2019 Screening for colorectal cancer 06/12/2019 Overview: Added automatically from request for monik nelson [id number] Vitamin D deficiency 03/01/2018 Pseudophakia of left [...] as of this encounter (statuses as of 12/08/2019) Resolved Problems Problem Noted Date Resolved Date Hypoxia 11/07/2017 11/22/2017 SBO (small bowel obstruction) 11/08/2015 11/22/2017 documented as of this encounter (statuses as of 12/08/2019) Immunizations Name Administration Dates Next Due Pneumococcal [...] encounter Progress Notes Jeny Ball RN - 12/05/2019 1:47 PM CDTCHP CM attempted to f/u with the patient re: BS and BP. CM left a vm for the patient. CM will consider dis- enrollment d/t unsuccessful attempts to contact patient. COLT Kilgore, RN, [facility] Outpatient Industrial Truck DriverVault AttendantFirsthealth O: [phone] M: [phone] documented in this encounter Plan of Treatment Date Type Specialty Care Team Description 12/22/2019 Nurse Visit Cardiology Visit, Adc Nurse 01/24/2020 Ancillary Visit Audiology 2, [employer] [employer] [facility] 01/24/2020 Office Visit Otolaryngology Tolu Cruz MD [address] [place] [address] [phone] 03/08/2020 Office Visit Ophthalmology Heather Burroughs MD [address] [place], [place] [address] 03/29/2020 Office Visit Endocrinology Diabetes & Lonny Mclean, Metabolism [address] [facility] [address] [place], [place] [address] [phone] 04/18/2020 Office Visit Cardiology Juana Lyons MD [address] [facility] 106 [place] [address] Health Maintenance Due Date Last [...] of this encounter Implants Implanted Type Area Hostess Party Sales Representative Device Shelf Model / Identifier Expiration Serial / Date Lot Defibrillator DEFIBRILLATOR documented as of this encounter Results Not on filedocumented in this encounter Insurance Payer Benefit Plan / Subscriber ID Effective Dates Phone Addre ss Type Group [facility] [id number] 2019-20 [facility] DST HOSP DIST 20 documented as of this encounter
--- OUTSIDE RECORDS SUMMARY | 2020-01-02 12:35 | XMS REPORT | Summary of Care ---
:1955 Author Organization [facility] - [facility] Address [address] [place] [address] Care Team Providers Name Role Phone Lupillo Herrera MD Primary Care Provider Matilda Ball RNmobile equipment mechanic Matilda Garcia Community Health Worker Reason for Visit Reason Comments Follow-up Encounter Details Date Type Department Care Team Description 12/12/2019 Patient Outreach [facility] Kate Garcia Follow-up [address] [address] Allergies No Known Allergiesdocumented as of this encounter (statuses as of 12/12/2019) Medications Medication Sig Dispensed Refills Start Date End Date Status aspirin 81 mg chewable Take 1 tablet by 60 tablet 5 02/28/2018 Active tablet mouth daily. 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 [place] coronary artery of [place] heart without angina pectoris FUROSEMIDE 40 mg TAKE 1 TABLET BY 60 tablet 2 06/27/2019 Active tabletIndications: MOUTH IN THE Coronary artery MORNING AND IN disease involving THE EVENING [place] coronary artery of [place] heart without angina pectoris insulin detemir U-100 [...] as of this encounter (statuses as of 12/12/2019) Active Problems Problem Noted Date Morbid obesity with body mass index of 40.0-49.9 07/05 Cardiac pacemaker in situ 07/05/2019 Screening for colorectal cancer 06/12/2019 Overview: Added automatically from request for monik nelson [id number] Vitamin D deficiency 03/01/2018 Pseudophakia of left [...] as of this encounter (statuses as of 12/12/2019) Resolved Problems Problem Noted Date Resolved Date Hypoxia 11/07/2017 11/22/2017 SBO (small bowel obstruction) 11/08/2015 11/22/2017 documented as of this encounter (statuses as of 12/12/2019) Immunizations Name Administration Dates Next Due Pneumococcal [...] this encounter Progress Notes Kate Garcia - 12/12/2019 1:46 PM ANATCANKUR Garcia called Mr. Rosado to follow up with him but no answer, did leave a message to call me back. documented in this encounter Plan of Treatment Date Type Specialty Care Team Description 12/22/2019 Nurse Visit Cardiology Visit, Adc Nurse 01/24/2020 Ancillary Visit Audiology 2, [employer] [employer] [facility] 01/24/2020 Office Visit Otolaryngology Tolu Cruz MD [address] [facility] [place] [address] [phone] 03/08/2020 Office Visit Ophthalmology Heather Burroughs MD [address] [place], [place] [address] 03/29/2020 Office Visit Endocrinology Diabetes & Lonny Mclean, Metabolism [address] [facility] [address] [place], [place] [address] [phone] 04/18/2020 Office Visit Cardiology Juana Lyons MD [address] [facility] 106 [place] [address] Health Maintenance Due Date Last [...] of this encounter Implants Implanted Type Area Director Outcomes Device Shelf Model / Identifier Expiration Serial / Date Lot Defibrillator DEFIBRILLATOR documented as of this encounter Results Not on filedocumented in this encounter Insurance Payer Benefit Plan / Subscriber ID Effective Dates Phone Addre ss Type Group [facility] [id number] 2019-20 [facility] HOSP DIST 20 documented as of this encounter
--- OUTSIDE RECORDS SUMMARY | 2020-01-02 12:36 | XMS REPORT | Summary of Care ---
:1955 Author Organization [facility] Address [address] [place] [id number] Care Team Providers Name Role Phone Lupillo Herrera MD Primary Care Provider Matilda Ball driving school instructor Matilda Garcia Community Health Worker Reason for Visit Reason Comments Diabetes Mellitus II (Routine) Status Reason Specialty Diagnoses / Referred By Referred To Procedures Contact Contact Closed IM-ENDOCRINOLOGY,DIAB Diagnoses 4 MOS. F/U Lonny Mclean Kevin ETES & METABOLISM / Procedures CONSULT/REFERRAL ENDOCRINOLOGY TELEHEALTH MD Suni LIZAMA MD Endocrinology [address] [place] [address] [address] [place] [address] Phone: Fax: Encounter Details Date Type Department Care Team Description 2019 Telemedicine Visit [facility] Lonny Mclean rolled type 2 diabetes mellitus with stage 4 chronic kidney disease, with long-term current use of insulin (Primary Dx); Endocrinology- MD Suni Essential hypertension; [address] Diabetic peripheral neuropat hy Professional Office Dr Jayme Peraza [place], [place] Dr. [place] [address] [address] [place], [place] [phone] [address] Allergies No Known Allergiesdocumented as of this encounter (statuses as of 12/25/2019) Medications Medication Sig Dispensed Refills Start Date End Date Status aspirin 81 mg chewable Take 1 tablet by 60 tablet 5 02/28/2018 Active tablet mouth daily. 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 che[place]nak coronary artery of [place]nak heart without angina pectoris FUROSEMIDE 40 mg TAKE 1 TABLET BY 60 tablet 2 06/27/2019 Active tabletIndications: MOUTH IN THE Coronary artery MORNING AND IN disease involving THE EVENING che[place]nak coronary artery of che[place]nak heart without angina pectoris insulin detemir U-100 [...] as of this encounter (statuses as of 12/25/2019) Active Problems Problem Noted Date Morbid obesity with body mass index of 40.0-49.9 07/05 Cardiac pacemaker in situ 07/05/2019 Screening for colorectal cancer 06/12/2019 Overview: Added automatically from request for monik [email or web address] [id number] Vitamin D deficiency 03/01/2018 Pseudophakia of left [...] as of this encounter (statuses as of 12/25/2019) Resolved Problems Problem Noted Date Resolved Date Hypoxia 11/07/2017 11/22/2017 SBO (small bowel obstruction) 11/08/2015 11/22/2017 documented as of this encounter (statuses as of 12/25/2019) Immunizations Name Administration Dates Next Due Pneumococcal [...] Signs Not on filedocumented in this encounter Patient Instructions Patient InstructionsLonny Mclean MD - 2019 12:00 PM CDTContinue Levemir 55 units daily. Increase regular insulin to 18 units three times daily before meals. Try to check your blood sugars twice daily. Avoid white bread, biscuits, egyptian fries and flour tortillas. Try to walk 15 minutes daily. documented in this encounter Progress Notes Lonny Mclean MD - 2019 12:00 PM CDT Chief Complaint Patient presents with Diabetes Mellitus II Verbal consent obtained from Pierre Rosado for telehealth services provided below for 20 minutes. Communication with patient was conducted via telephone. Patient was at home, I was in the [place] clinic. HPI Patient is a 63 year old man who is following up for Diabetes Mellitus Type 2. 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 He is here for blood glucose control. Patient usually checks blood glucoses intermittently. He has the occasional low blood sugar;most are in the upper 100s to 200s. Patient is compliant with medication regimen. He is on [id number] units daily and regular insulin 12 units three times daily; he occasionally misses doses. Patient is noncompliant with diet/exercise regimen; he doesn't walk, and ingests a lot of refined carbs inthe form of tortillas and biscuits (doing better). HISTORY Past Medical History: Diagnosis Date CAD [...] N/A 07/18/2019 Surgeon: Cecelia Ramon MD; Location: [facility] EXTRACAPSULAR CATARACT EXTRACTION WITH INTRAOCULAR LENS IMPLANT Left LEFT HEART CATH OD REPAIR RETINAL CRYOTHERAPY, RIGHT EYE Family History Problem Relation Age of Onset Diabetes Mother Diabetes Father Diabetes Sister Cancer Sister "female" cancer Diabetes Brother Diabetes Brother Family Status Relation Status Mother Father Sister Brother Brother Social History Socioeconomic History Marital status: Single [...] file Gets together: Not on file Attends sabianism service: Not on file Active member of [...] As of 11/07/2017: Patient works maintenance at [employer]. Lives alone in [place], drives ~15 miles to work. Denies smoking, drinking, or using illicit drugs. Single, no children Not working currently REVIEW OF SYSTEMS Constitutional: + fatigue Eyes: + decreased vision. Neck: negative Cardiovascular: negative. Respiratory: + dyspnea on exertion. Gastrointestinal: negative. Musculoskeletal: + joint pain and + weakness. Neuro: + paraesthesias. Endocrine: negative. PHYSICAL EXAM POCT GLU (mg/dL) Date Value 07/06/2019 276 (H) CREATININE (mg/dL) Date Value 07/06/2019 2.08 (H) CHOL (mg/dL) Date Value 05/09/2019 99 (L) HDL (mg/dL) Date Value 05/09/2019 37 (L) LDL CHOL (mg/dL) Date Value 05/09/2019 40 TRIG (mg/dL) Date Value 05/09/2019 110 MICROAL/CR (ug/mmol creatinine) Date Value 05/09/2019 230,297 (H) POCT HBA1C (%) Date Value 02/11/2018 >14.0 HGB A1C (% NGSP) Date Value 05/09/2019 10.9 (H) There were no vitals taken for this visit. No exam--telemedicine. ASSESSMENT ICD-10-CM ICD-9-CM 1. Uncontrolled type 2 diabetes mellitus with stage 4 chronic kidney disease, with long-term currentuse of insulin E11.22 250.52 E11.65 585.4 N18.4 V58.67 Z79.4 2. Essential hypertension I10 401.9 3. Diabetic peripheral neuropathy E11.42 250.60 357.2 Poorly controlled. PLAN Increase Levemir to 55 units daily. Increase regular insulin to 18 units thrice daily before meals. Check BGs twice daily Emphasized lifestyle modifications, and gave specific examples for improvement No orders of the defined types were placed in this encounter. documented in this encounter Plan of Treatment Date Type Specialty Care Team Description 12/29/2019 Nurse Visit Cardiology Visit, Adc Nurse 01/24/2020 Ancillary Visit Audiology , [employer] 01/24/2020 Office Visit Otolaryngology Tolu Cruz MD [address] [facility] [place] [address] [phone] 03/08/2020 Office Visit Ophthalmology Heather Burroughs MD [address] [place], [place] [address] 03/29/2020 Office Visit Endocrinology Diabetes & Lonny Mclean, Metabolism [address] [address] [phone] 04/18/2020 Office Visit Cardiology Juana Lyons MD [address]AZ[address] [place] [address], [place] [address] Health Maintenance Due Date Last Done [...] of this encounter Implants Implanted Type Area Loan Closer Device Shelf Model / Identifier Expiration Serial / Date Lot Defibrillator DEFIBRILLATOR documented as of this encounter Results Not on filedocumented in this encounter Visit Diagnoses Diagnosis Uncontrolled type 2 diabetes mellitus wi th stage 4 chronic kidney disease, with long-term current use of insulin - Prima ry Essential hypertension Unspecified essential hypertension Diabetic peripheral neuropathy Type II or unspecified type diabetes marin litus with neurological manifestations, not stated as uncontrolled documented in this encounter Insurance Payer Benefit Plan / Subscriber ID Effective Dates Phone Addre ss Type Group [facility] [id number] 2019-20 [facility] HOSP DIST [address] (Work) [id number] documented as of this encounter
--- OUTSIDE RECORDS SUMMARY | 2020-01-02 12:36 | XMS REPORT | Summary of Care ---
:1955 Author Organization [facility] Address [address] [place] [address] Care Team Providers Name Role Phone Lupillo Herrera MD Primary Care Provider Reason for Visit Reason Comments NURSE VISIT Pacemaker Check (Routine) Status Reason Specialty Diagnoses / Referred By Referred To Procedures Contact Contact Authorized Cardiology Procedures Lupillo Herrera CONSULT/REFERRAL MD Susan CARDIOLOGY [facility] [place] [address] Encounter Details Date Type Department Care Team Description 12/29/2019 Nurse Visit [facility] Juana Lyons MD [address] [facility] [address] [place] [address] Encounter for Cardiology- [place] Visit, Adc Nurse interrogation of [address] [place] [address] [facility] [address] (Primary Dx) [place] [address] Allergies No Known Allergiesdocumented as of this encounter (statuses as of 12/29/2019) Medications Medication Sig Dispensed Refills Start Date End Date Status aspirin 81 mg chewable Take 1 tablet by 60 tablet 5 02/28/2018 Active tablet mouth daily. 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 tangirnaq coronary artery of tangirnaq heart without angina pectoris FUROSEMIDE 40 mg TAKE 1 TABLET BY 60 tablet 2 06/27/2019 Active tabletIndications: MOUTH IN THE Coronary artery MORNING AND IN disease involving THE EVENING tangirnaq coronary artery of tangirnaq heart without angina pectoris insulin detemir U-100 [...] as of this encounter (statuses as of 12/29/2019) Active Problems Problem Noted Date Morbid obesity with body mass index of 40.0-49.9 07/05 Cardiac pacemaker in situ 07/05/2019 Screening for colorectal cancer 06/12/2019 Overview: Added automatically from request for monik damon [id number] Vitamin D deficiency 03/01/2018 Pseudophakia of left [...] as of this encounter (statuses as of 12/29/2019) Resolved Problems Problem Noted Date Resolved Date Hypoxia 11/07/2017 11/22/2017 SBO (small bowel obstruction) 11/08/2015 11/22/2017 documented as of this encounter (statuses as of 12/29/2019) Immunizations Name Administration Dates Next Due Pneumococcal [...] been in contact with No / Unsure 12/29/2019 3:32 PM CDT someone who was confirmed or suspected to have Coronavirus / COVID-19? documented as of this encounter Last Filed Vital Signs Not on filedocumented in this encounter Progress Notes Melody Gooden MA - 12/29/2019 3:15 PM CDTPatient here for pacemaker check. [employer] call center support representative at bedside and performed download. Report given to MD for review/interpretation. Patient scheduled for f/u as recommended. Current rhythm: 65 Underlying rhythm: NSR Estimated battery longevity:100 Atrial episodes: 0 Ventricular episodes: 1 Programming changes made: No documented in this encounter Plan of Treatment Date Type Specialty Care Team Description 01/24/2020 Ancillary Visit Audiology 2, [employer] 01/24/2020 Office Visit Otolaryngology Tolu Cruz MD [address] [facility] [address] [facility] [place], [place] [address] 03/08/2020 Office Visit Ophthalmology Heather Burroughs MD [address] [place], [place] [address] 03/29/2020 Office Visit Endocrinology Diabetes & Lonny Mclean, Metabolism [address] [facility] [address] [place], [place] [address] 04/18/2020 Office Visit Cardiology Juana Lyons MD [address] [facility] [address] [place] [address] Health Maintenance Due Date Last [...] 07/21/2020 07/21/2019, 07/21/2019, 05/08/2019, Additional history exists Depression Screening 10/16/2020 10/17/2019, 02/20/2019 COLONOSCOPY 07/18/2022 07/18/2019 HEPATITIS C (HCV) SCREEN [...] of this encounter Implants Implanted Type Area Manager User Interface Device Shelf Model / Identifier Expiration Serial / Date Lot Defibrillator DEFIBRILLATOR documented as of this encounter Results Not on filedocumented in this encounter Visit Diagnoses Diagnosis Encounter for interrogation of cardiac d efibrillator - Primary Fitting and adjustment of automatic impl antable cardiac defibrillator documented in this encounter Insurance Payer Benefit Plan / Subscriber ID Effective Dates Phone Addre ss Type Group [facility] [id number] 2019-20 [facility] HOSP DIST 20 (Work) [id number] documented as of this encounter
--- NOTE | 2020-01-02 15:31 | EDPHYS ---
Physician Documentation [facility] Name: Pierre Rosado Age: 64 yrs Sex: Male : 1955 Arrival Date: 01/02/2020 Time: 10:44 Bed 4 Private MD: ED Physician Cas Hollins HPI: 01/01 10:59 This 64 yrs old Male presents to ER via EMS with complaints of Dizziness. pm1 10:59 The patient presents with dizziness. Onset: The symptoms/episode began/occurred today. pm1 Context: occurred outdoors, occurred while the patient was driving. just prior to the episode the patient experienced headache. Modifying factors: The symptoms are alleviated by nothing, the symptoms are aggravated by changing position. Associated signs and symptoms: Pertinent positives: headache, Pertinent negatives: chest pain, diaphoresis, focal weakness, nausea, numbness, shortness of breath, tingling, vomiting. Severity of symptoms: in the emergency department the symptoms have resolved Pain is currently a 0 / 10. Patient's baseline: Neuro: alert and fully oriented, Motor: no deficits, Ambulation: walks without assistance, Speech: normal. The patient has not experienced similar symptoms in the past. The patient has not recently seen a physician. Patient reports that he had sinus issues for the past few days with the need to clear his nose in the mornings. He has been getting sinus headaches for the past few days that comes with some dizziness. Same presentation of his headache, just lasted longer. Historical: - Allergies: 10:59 No Known Allergies; sv - PMHx: 10:59 Diabetes - IDDM; Hypertension; sv - PSHx: 10:59 None; sv - Immunization history:: Adult Immunizations. - Social history:: Smoking status: . ROS: 10:59 Constitutional: Negative for fever, chills, and weight loss, Eyes: Negative for injury, pm1 pain, redness, and discharge. 10:59 Neck: Negative for injury, pain, and swelling, Cardiovascular: Negative for chest pain, palpitations, and edema, Respiratory: Negative for shortness of breath, cough, wheezing, and pleuritic chest pain, Abdomen/GI: Negative for abdominal pain, nausea, vomiting, diarrhea, and constipation, Back: Negative for injury and pain, MS/Extremity: Negative for injury and deformity, Skin: Negative for injury, rash, and discoloration. 10:59 ENT: Positive for sinus congestion, sinus pain. 10:59 Neuro: Positive for dizziness, headache, Negative for numbness, seizure activity, tingling, weakness. Exam: 10:59 Constitutional: This is a well developed, well nourished patient who is awake, alert, pm1 and in no acute distress. Head/Face: Normocephalic, atraumatic. Eyes: Pupils equal round and reactive to light, extra-ocular motions intact. Lids and lashes normal. Conjunctiva and sclera are non-icteric and not injected. Cornea within normal limits. Periorbital areas with no swelling, redness, or edema. ENT: Nares patent. No nasal discharge, no septal abnormalities noted. Tympanic membranes are normal and external auditory canals are clear. Oropharynx with no redness, swelling, or masses, exudates, or evidence of obstruction, uvula midline. Mucous membranes moist. Neck: Trachea midline, no thyromegaly or masses palpated, and no cervical lymphadenopathy. Supple, full range of motion without nuchal rigidity, or vertebral point tenderness. No Meningismus. Chest/axilla: Normal chest wall appearance and motion. Nontender with no deformity. No lesions are appreciated. Cardiovascular: Regular rate and rhythm with a normal S1 and S2. No gallops, murmurs, or rubs. Normal PMI, no JVD. No pulse deficits. Respiratory: Lungs have equal breath sounds bilaterally, clear to auscultation and percussion. No rales, rhonchi or wheezes noted. No increased work of breathing, no retractions or nasal flaring. Abdomen/GI: Soft, non-tender, with normal bowel sounds. No distension or tympany. No guarding or rebound. No evidence of tenderness throughout. Back: No spinal tenderness. No costovertebral tenderness. Full range of motion. Skin: Warm, dry with normal turgor. Normal color with no rashes, no lesions, and no evidence of cellulitis. MS/ Extremity: Pulses equal, no cyanosis. Neurovascular intact. Full, normal range of motion. 10:59 Neuro: Orientation: is normal, Mentation: is normal, Cranial nerves: CN II- XII are normal as tested, Cerebellar function: normal finger to nose testing, Motor: moves all fours, strength is normal, strength is 5/5 in all extremities, Sensation: is normal, no obvious gross deficits. Vital Signs: 10:44 BP 156 / 65; Pulse 68; Resp 16; Temp 97.9; Pulse Ox 98% on R/A; Weight 115.67 kg; ss Height 5 ft. 6 in. (167.64 cm); Pain 0/10; 11:24 BP 148 / 64; Pulse 63 MON; Resp 16; Pulse Ox 98% on R/A; sv 11:56 BP 157 / 65; Pulse 59; Resp 16; Pulse Ox 97% ; sv 12:32 BP 159 / 63; Pulse 61; Resp 16; Pulse Ox 98% ; sv 13:35 BP 187 / 64; Pulse 61; Resp 18; Pulse Ox 96% ; sv 14:41 BP 153 / 87; Pulse 60; Resp 16; Pulse Ox 97% ; sv 15:48 BP 177 / 78; Pulse 64; Resp 17; Pulse Ox 97% on R/A; tw2 10:44 Body Mass Index 41.16 (115.67 kg, 167.64 cm) ss 11:24 Paced sv MDM: 10:44 Patient medically screened. pm1 15:30 Data reviewed: vital signs. Data interpreted: Pulse oximetry: on room air is 97 %. pm1 Interpretation: normal. Counseling: I had a detailed discussion with the patient and/or guardian regarding: the historical points, exam findings, and any diagnostic results supporting the discharge/admit diagnosis, lab results, radiology results, the need for outpatient follow up, to return to the emergency department if symptoms worsen or persist or if there are any questions or concerns that arise at home. 01/01 10:46 Order name: Basic Metabolic Panel; Complete Time: 12:28 pm1 01/01 10:46 Order name: CBC with Diff; Complete Time: 11:39 pm1 01/01 10:46 Order name: LFT's; Complete Time: 12:28 pm1 01/01 10:46 Order name: Magnesium; Complete Time: 12:28 pm01/01 10:46 Order name: NT PRO-BNP; Complete Time: 12:28 pm1 01/01 10:46 Order name: PT-INR; Complete Time: 11:39 pm1 01/01 10:46 Order name: Troponin (emerg Dept Use Only); Complete Time: 12:28 pm1 01/01 10:46 Order name: XRAY Chest (1 view); Complete Time: 11:39 pm1 01/01 10:46 Order name: EKG; Complete Time: 10:47 pm1 01/01 10:46 Order name: Cardiac monitoring; Complete Time: 11:02 pm01/01 10:46 Order name: EKG - Nurse/Tech; Complete Time: 10:46 pm1 01/01 10:46 Order name: CT Head Brain wo Cont; Complete Time: 11:39 pm01/01 14:09 Order name: Troponin (emerg Dept Use Only): draw at 1420; Complete Time: 15:29 sv 01/01 10:46 Order name: IV Saline Lock; Complete Time: 11:02 pm1 01/01 10:46 Order name: Labs collected and sent; Complete Time: 11:02 pm1 01/01 10:46 Order name: O2 Per Protocol; Complete Time: 11:02 pm1 01/01 10:46 Order name: O2 Sat Monitoring; Complete Time: 11:02 pm1 01/01 11:11 Order name: Labs - recollect needed: recollect BMP; Complete Time: 11:18 ss 01/01 11:34 Order name: Labs - recollect needed: recollec c7 again; Complete Time: 11:59 bd EC:46 Rate is 70 beats/min. Rhythm is regular, Paced. No Q waves. T waves are Normal. No ST pm1 changes noted. Clinical impression: AV sequential paced rhythm. Administered Medications: 13:38 Drug: Rocephin 1 grams Route: IV; Rate: calculated rate; Site: left hand; tw2 13:43 Follow up: IV Status: Completed infusion tw2 Disposition: 19:40 Co-signature as Attending Physician, Cas Hollins MD. [email or web address] Disposition: 01/02/20 15:30 Discharged to Home. Impression: Acute sinusitis, Dizziness and giddiness, Headache. - Condition is Stable. - Discharge Instructions: Dizziness, General Headache Without Cause, Sinusitis, Adult. - Prescriptions for Augmentin 875- 125 mg Oral Tablet - take 1 tablet by ORAL route every 12 hours for 10 days; 20 tablet. - Medication Reconciliation Form, Thank You Letter, Antibiotic Education, Prescription Opioid Use form. - Follow up: Emergency Department; When: As needed; Reason: Worsening of condition. Follow up: Private Physician; When: 2 - 3 days; Reason: Recheck today's complaints, Continuance of care, Re-evaluation by your physician. - Problem is new. - Symptoms have improved. Signatures: Dispatcher [employer] EDMS April Jeffery Roxanna Gifford RN Christiana Lyon RN RN ss Wilbur French, DIRECTOR MONEY DIRECTOR MONEY pm1 Maxine Anthony RN RN tw2 Cas Hollins MD MD 7 Corrections: (The following items were deleted from the chart) 15:31 15:30 Counseling: I had a detailed discussion with the patient and/or guardian pm1 regarding: the historical points, exam findings, and any diagnostic results supporting the discharge/admit diagnosis, lab results, radiology results, the need for outpatient follow up, to return to the emergency department if symptoms worsen or persist or if there are any questions or concerns that arise at home, pm1 15:31 15:30 01/02/2020 15:30 Discharged to Home. Impression: Acute sinusitis; Dizziness and pm1 giddiness. Condition is Stable. Forms are Medication Reconciliation Form, Thank You Letter, Antibiotic Education, Prescription Opioid Use. Follow up: Emergency Department; When: As needed; Reason: Worsening of condition. Follow up: Private Physician; When: 2 - 3 days; Reason: Recheck today's complaints, Continuance of care, Re-evaluation by your physician. Problem is new. Symptoms have improved. pm1 15:49 15:31 01/02/2020 15:30 Discharged to Home. Impression: Acute sinusitis; Dizziness and tw2 giddiness; Headache. Condition is Stable. Forms are Medication Reconciliation Form, Thank You Letter, Antibiotic Education, Prescription Opioid Use. Follow up: Emergency Department; When: As needed; Reason: Worsening of condition. Follow up: Private Physician; When: 2 - 3 days; Reason: Recheck today's complaints, Continuance of care, Re-evaluation by your physician. Problem is new. Symptoms have improved. pm1
--- NOTE | 2020-01-02 15:31 | ER ---
Nurse's Notes [facility] Name: Pierre Rosado Age: 64 yrs Sex: Male : 1955 Arrival Date: 01/02/2020 Time: 10:44 Bed 4 Private MD: Diagnosis: Acute sinusitis;Dizziness and giddiness;Headache Presentation: 01/01 10:40 Chief complaint:. Risk Assessment: Do you want to hurt yourself or someone else? sv Patient reports no desire to harm self or others. Onset of symptoms was January 02, 2020. 10:40 Acuity: BRYSON 3 sv 10:44 Chief complaint: EMS states: Friend waved EMS down because patient was unsteady and ss dizzy. Pt refused EMS transport because he felt okay other than a slight sinus headache. BGL on scene was 202. Pt has no complaints at this time. Coronavirus screen: Proceed with normal triage. Patient denies a cough. Patient denies shortness of breath or difficulty breathing. Patient denies measured and/or subjective temperature greater than 100.4F prior to today's visit. Patient denies travel on a cruise ship or to a country the [facility] currently lists as an affected area. Patient denies contact with known and/or suspected case of COVID-19. Ebola Screen: Patient denies exposure to infectious person. Patient denies travel to an Ebola-affected area in the 21 days before illness onset. Initial Sepsis Screen: Does the patient meet any 2 criteria? No. Patient's initial sepsis screen is negative. Does the patient have a suspected source of infection? No. Patient's initial sepsis screen is negative. Risk Assessment: Do you want to hurt yourself or someone else? Patient reports no desire to harm self or others. Onset of symptoms was January 02, 2020. 10:44 Method Of Arrival: EMS: [facility] ss Triage Assessment: 10:40 General: Appears in no apparent distress. comfortable, well groomed, well developed, sv Behavior is calm, cooperative, appropriate for age. Pain: Denies pain. Neuro: Level of Consciousness is awake, alert, obeys commands, Oriented to person, place, time, situation, Moves all extremities. Full function Speech is normal. Cardiovascular:. Cardiovascular: Patient's skin is warm and dry. Respiratory: Airway is patent Respiratory effort is even, unlabored, Respiratory pattern is regular, symmetrical. Derm: Skin is pink, warm \T\ dry. Historical: - Allergies: 10:59 No Known Allergies; sv - PMHx: 10:59 Diabetes - IDDM; Hypertension; sv - PSHx: 10:59 None; sv - Immunization history:: Adult Immunizations. - Social history:: Smoking status: . Screenin:40 Abuse screen: Denies threats or abuse. Denies injuries from another. Nutritional sv screening: No deficits noted. Tuberculosis screening: No symptoms or risk factors identified. Fall Risk None identified. Assessment: 12:30 Reassessment: Patient appears in no apparent distress at this time. No changes from sv previously documented assessment. Patient and/or family updated on plan of care and expected duration. Pain level reassessed. Patient is alert, oriented x 3, equal unlabored respirations, skin warm/dry/pink. 13:38 Reassessment: Patient appears in no apparent distress at this time. No changes from sv previously documented assessment. Patient and/or family updated on plan of care and expected duration. Pain level reassessed. Patient is alert, oriented x 3, equal unlabored respirations, skin warm/dry/pink. 14:40 Reassessment: Patient appears in no apparent distress at this time. No changes from sv previously documented assessment. Patient and/or family updated on plan of care and expected duration. Pain level reassessed. Patient is alert, oriented x 3, equal unlabored respirations, skin warm/dry/pink. 14:41 Reassessment: Repeat troponin sent. sv 15:48 Reassessment: Patient appears in no apparent distress at this time. No changes from tw2 previously documented assessment. Patient and/or family updated on plan of care and expected duration. Pain level reassessed. Patient is alert, oriented x 3, equal unlabored respirations, skin warm/dry/pink. Vital Signs: 10:44 BP 156 / 65; Pulse 68; Resp 16; Temp 97.9; Pulse Ox 98% on R/A; Weight 115.67 kg; ss Height 5 ft. 6 in. (167.64 cm); Pain 0/10; 11:24 BP 148 / 64; Pulse 63 MON; Resp 16; Pulse Ox 98% on R/A; sv 11:56 BP 157 / 65; Pulse 59; Resp 16; Pulse Ox 97% ; sv 12:32 BP 159 / 63; Pulse 61; Resp 16; Pulse Ox 98% ; sv 13:35 BP 187 / 64; Pulse 61; Resp 18; Pulse Ox 96% ; sv 14:41 BP 153 / 87; Pulse 60; Resp 16; Pulse Ox 97% ; sv 15:48 BP 177 / 78; Pulse 64; Resp 17; Pulse Ox 97% on R/A; tw2 10:44 Body Mass Index 41.16 (115.67 kg, 167.64 cm) ss 11:24 Paced sv ED Course: 10:40 Maintain EMS IV. Dressing intact. Site clean \T\ dry. Gauge \T\ site: 20G L AC, does not sv pull blood. IV taken out.. 10:40 EKG done, by ED staff, reviewed by Wilbur French NP. sv 10:40 Patient has correct armband on for positive identification. Placed in gown. Bed in low sv position. Call light in reach. Side rails up X2. bus driver/monitor on. Pulse ox on. NIBP on. Door closed. 10:44 Patient arrived in ED. ss 10:44 Wilbur French, ORGANIC LAB WORKER is PHCP. pm1 10:44 Cas Hollins MD is Attending Physician. pm1 10:45 Roxanna Monzon RN is Primary Nurse. sv 10:50 Inserted saline lock: 20 gauge in left wrist, using aseptic technique. Blood collected. sv Flushed left with 5 ml normal saline. 10:57 X-ray(s) taken. sv 10:59 Triage completed. sv 10:59 Arm band placed on. sv 11:02 XRAY Chest (1 view) In Process Unspecified. EDMS 11:03 CT Head Brain wo Cont In Process Unspecified. EDMS 11:04 Patient moved back from CT. sv 11:14 Lab(s) recollected, by me, sent to lab. sv 12:00 Lab(s) recollected, by ED staff, sent to lab. sv 14:34 Repeat lab(s) drawn. sent to lab. mh5 14:35 Troponin (emerg Dept Use Only): draw at 1420 Sent. mh5 15:48 No provider procedures requiring assistance completed. IV discontinued, intact, tw2 bleeding controlled, No redness/swelling at site. Pressure dressing applied. Administered Medications: 13:38 Drug: Rocephin 1 grams Route: IV; Rate: calculated rate; Site: left hand; tw2 13:43 Follow up: IV Status: Completed infusion tw2 Outcome: 15:30 Discharge ordered by . pm1 15:48 Discharged to home via wheelchair. tw2 15:48 Condition: stable 15:48 Discharge instructions given to patient, Instructed on discharge instructions, follow up and referral plans. medication usage, Demonstrated understanding of instructions, follow-up care, medications, Prescriptions given X 1. 15:49 Patient left the ED. tw2 Signatures: Dispatcher [employer] Roxanna Wynn RN RN Christiana Madrid RN RN ss Wilbur French, ORGANIC LAB WORKER ORGANIC LAB WORKER pm1 Maxine Anthony RN RN tw2 Jacque Hair [facility]
[2020-01-02 15:55] VITALS: TEMP 97.9
[2020-01-02 16:02] VITALS: O2SAT 97
[2020-01-02 16:04] VITALS: BP 177/78
--- NOTE | 2020-01-02 19:24 | EKG ---
Test Date: 2020-01-02 Test Time: 10:38:22 Home Staging Specialist: JESUS MEASUREMENT RESULTS: Intervals: Rate: 70 [place]: QRSD: 150 QT: 450 QTc: 486 [place]: P: DE: QRS: 121 T: -11 INTERPRETIVE STATEMENTS: AV sequential or dual chamber electronic pacemaker No previous ECG available for comparison Electronically Signed On 01-02-20 19:23:51 CDT by Julio Freedman
== END 2020-01-02 15:49 | disposition home or self-care (01) ==
LOC: ER 10:42
DX: J01.90 Acute sinusitis, unspecified (principal); R51 Headache
CPT/HCPCS: 36415; 70450; 71045; 80048; 80076; 83735; 83880; 84484; 85025; 85610; 93005; 96374; 99285